=== PATIENT | female | born 1985 | race Caucasian/White ===

== ENCOUNTER 2016-04-22 16:36 | Emergency (ER) | payer BC ==
[~2016-04-22] VITALS: Ht 160 cm; Wt 81.1 kg
[~2016-04-22 16:36] MED LIST: HYDR-3419 PO
[2016-04-22 16:39] VITALS: Ht 160 cm; Wt 81.1 kg
[2016-04-22] MEDS ORDERED: SODIUM CHLORIDE 0.9% 1000ML 1,000 ML IV STA (16:50)
[2016-04-22 17:04] LABS: URINE APPEARANCE CLEAR (CLEAR); URINE BILIRUBIN NEG (NEG); URINE COLOR YELLOW; URINE EPITHELIAL CELL AUTO >30 /lpf (0-5); URINE NITRITE NEG (NEG); URINE PH 6.5 (4.5-7.5); URINE SPECIFIC GRAVITY 1.027 (1.000-1.030); UROBILINOGEN NEG (NEG); ZZUR CULT IF INDIC CLEAN CATCH NO
[2016-04-22 17:06] LABS: MANUAL MICROSCOPIC REQUIRED? NO; REVIEW REQ? NO
[2016-04-22] MEDS ORDERED: MoRPHine SULFATE 4 MG/ML 1 ML CARP\\VIAL IV STA ×2 (17:11→19:25)
--- NOTE | 2016-04-22 17:11 | DIAGNOSTIC IMAGING REPORT ---
CHEST ONE VIEW PORTABLE HISTORY: Evaluate Fever/Sepsis COMPARISON: Chest 12/26/2013. FINDINGS: The lungs are clear. Cardiac silhouette is normal in size. No pleural effusions. No pneumothorax. IMPRESSION: No acute process. Electronically signed by: Shiva Jonas M.D. 04/22/2016 5:10 PM Dictated Date/Time: 04/22/2016 5:09 PM
[2016-04-22] MEDS ORDERED: ONDANSETRON INJ 2 MG/ML 2 ML VIAL ONE (17:45)
[2016-04-22 17:49] VITALS: TEMP 37.2
[2016-04-22 17:53] LABS: BASO % 0.2 %; BASO ABS # 0.01 K/uL (0-0.2); COMPLETE YES; EOS % 0.4 %; HEMATOCRIT 39.1 % (37-47); IG% 0.2 %; LYMPH % 17.8 %; MEAN CELL VOLUME 84.8 fL (80-100); MEAN CORPUSCULAR HEMOGLOBIN 29.1 pg (25-34); MEAN CORPUSCULAR HGB CONC 34.3 g/dl (32-36); MEAN PLATELET VOLUME 10.7 fL (7.4-10.4); MONO % 9.4 %; PLATELET COUNT 173 K/uL (130-400); RED BLOOD COUNT 4.61 M/uL (4.2-5.4); WHITE BLOOD COUNT 5.61 K/uL (4.8-10.8)
[2016-04-22 18:20] LABS: ALT/SGPT 41 U/L (12-78); BLOOD UREA NITROGEN 11 mg/dl (7-18); BUN/CREATININE RATIO 15.8 (10-20); CALCIUM 8.7 mg/dl (8.5-10.1); CARBON DIOXIDE 23 mmol/L (21-32); CHLORIDE 106 mmol/L (98-107); CREATININE 0.67 mg/dl (0.60-1.20); GLUCOSE 96 mg/dl (70-99); POTASSIUM 3.5 mmol/L (3.5-5.1); SODIUM 141 mmol/L (136-145)
[2016-04-22 18:25] LABS: ALKALINE PHOSPHATASE 102 U/L (45-117); AST/SGOT 36 U/L (15-37)
[2016-04-22 18:41] LABS: PREG INTERNAL NEGATIVE QC NEG CLEAR BACKGROUND; PREG INTERNAL POSITIVE QC POS CONTROL LINE
--- NOTE | 2016-04-22 19:11 | EMERGENCY ROOM VISIT NOTE ---
History Report prepared by Chaparro: Levi Saucedo Under the Supervision of: Martinez SofiaO. First contact with patient: 16:49 Chief Complaint: FLU LIKE SX Stated Complaint: FEVER 103, COUGH, WHEEZING, BODY ACHES,HEADACHE History of Present Illness The patient is a 31 year old female who presents to the Emergency Room with complaints of persistent illness beginning yesterday. She notes she has had a fever of 103, headache which causes nausea, cough, body aches, wheezing, and pain in her right lower lobe. She has been taking Tylenol and Motrin. The patient is currently nursing. Source of History: patient Onset: yesterday Position: other (global) Quality: other (illness) Timing: other (persistent) Associated Symptoms: + cough, + fevers (103), + headache, + nausea Note: The patient notes having body aches, wheezing, and pain in her right lower lobe. Review of Systems See HPI for pertinent positives & negatives. A total of 10 systems reviewed and were otherwise negative. Past Medical & Surgical Medical Problems: (1) Anxiety State Nos (2) Migraine (3) Ovarian Cyst Nec/Nos (4) Polycystic Ovaries Family History Cancer Diabetes mellitus Gallbladder disease Heart disease Hypertension Lung disease Social History Smoking Status: Never Smoker Alcohol Use: occasionally Marital Status: Housing Status: lives with family Occupation Status: unemployed Current/Historical Medications Scheduled Escitalopram Oxalate (Lexapro), 20 MG PO DAILY Fenugreek (Trigonella Foenum-G (Fenugreek), 4 CAP PO TID Levothyroxine Sodium (Synthroid), 75 MCG PO HS Multivit/Min/Iron/Fol Ac/Pren ( Vitamin), 1 TAB PO HS Allergies Coded Allergies: Adhesives (Verified Allergy, Mild, RASH, 04/22/16) Azelastine (Verified Allergy, Mild, FACIAL SWELLING, 04/22/16) Codeine (Verified Allergy, Mild, HIVES, 04/22/16) Propoxyphene (Verified Allergy, Mild, 04/22/16) Tramadol (Verified Allergy, Mild, HIVES, 04/22/16) ABLE TO TAKE PO Beeswax (Verified Allergy, Unknown, SWELLING, 04/22/16) Hydromorphone (Verified Allergy, Unknown, hives , 02/19/16) HAD REACTION TO IV NOT SURE ONE TABLET FORM, Ketorolac (Verified Allergy, Unknown, HIVES, 04/22/16) Onion (Verified Allergy, Unknown, THROAT SWELLING, 04/22/16) Oxycodone (Verified Allergy, Unknown, THROAT SWELLING, 04/22/16) Penicillins (Verified Allergy, Unknown, THROAT SWELLING, 04/22/16) Tromethamine (Verified Allergy, Unknown, HIVES, 04/22/16) Physical Exam Vital Signs Date Time Temp Pulse Resp B/P Pulse Ox O2 Delivery O2 Flow Rate FiO2 04/22/16 18:47 97 16 102/61 99 Room Air 04/22/16 17:49 37.2 103 16 99/73 97 Room Air 04/22/16 17:05 112 04/22/16 16:39 37.5 130 18 116/88 93 Room Air Physical Exam CONSTITUTIONAL/VITAL SIGNS: Reviewed / noted above. GENERAL: Non-toxic in appearance. INTEGUMENTARY: Warm, dry, and [place]. HEAD: Normocephalic. EYES: without scleral icterus or trauma. ENT/OROPHARYNX: clear and moist. LYMPHADENOPATHY/NECK: Is supple without lymphadenopathy or meningismus. RESPIRATORY: Lungs clear and equal. CARDIOVASCULAR: Slightly tachycardic. GI/ABDOMEN: Soft and nontender. No organomegaly or pulsatile mass. No rebound or guarding. Normal bowel sounds. EXTREMITIES: Warm and well perfused. BACK: No CVA tenderness. NEUROLOGICAL: Intact without focal deficits. PSYCHIATRIC: normal affect. MUSCULOSKELETAL: Normally developed with good muscle tone. Medical Decision & Procedures ER Provider Diagnostic Interpretation: X ray results and stated below per my interpretation and radiology interpretation. CHEST ONE VIEW PORTABLE FINDINGS: The lungs are clear. Cardiac silhouette is normal in size. No pleural effusions. No pneumothorax. IMPRESSION: No acute process. Electronically signed by: Shiva Jonas M.D. 04/22/2016 5:10 PM Dictated Date/Time: 04/22/2016 5:09 PM Laboratory Results 04/22/16 17:30 Red Blood Count 4.61, Mean Corpuscular Volume 84.8, Mean Corpuscular Hemoglobin 29.1, Mean Corpuscular Hemoglobin Concent 34.3, Mean Platelet Volume 10.7, Neutrophils (%) (Auto) 72.0, Lymphocytes (%) (Auto) 17.8, Monocytes (%) (Auto) 9.4, Eosinophils (%) (Auto) 0.4, Basophils (%) (Auto) 0.2, Neutrophils # (Auto) 4.04, Lymphocytes # (Auto) 1.00, Monocytes # (Auto) 0.53, Eosinophils # (Auto) 0.02, Basophils # (Auto) 0.01 04/22/16 17:30 Test 04/22/16 16:45 04/22/16 17:00 04/22/16 17:30 Urine Color YELLOW Urine Appearance CLEAR (CLEAR) Urine pH 6.5 (4.5-7.5) Urine Specific [place] 1.027 (1.000-1.030) Urine Protein NEG (NEG) Urine Glucose (UA) NEG (NEG) Urine Ketones TRACE (NEG) Urine Occult Blood NEG (NEG) Urine Nitrite NEG (NEG) Urine Bilirubin NEG (NEG) Urine Urobilinogen NEG (NEG) Urine Leukocyte Esterase TRACE (NEG) Urine WBC (Auto) 5-10 /hpf (0-5) Urine RBC (Auto) 5-10 /hpf (0-4) Urine Hyaline Casts (Auto) 1-5 /lpf (0-5) Urine Epithelial Cells (Auto) >30 /lpf (0-5) Urine Bacteria (Auto) NEG (NEG) Urine Test NEG (NEG) Influenza Type A Antigen Neg for Influ A (NEG) Influenza Type B Antigen Neg for Influ B (NEG) White Blood Count 5.61 K/uL (4.8-10.8) Red Blood Count 4.61 M/uL (4.2-5.4) Hemoglobin 13.4 g/dL (12.0-16.0) Hematocrit 39.1 % (37-47) Mean Corpuscular Volume 84.8 fL (80-100) Mean Corpuscular Hemoglobin 29.1 pg (25-34) Mean Corpuscular Hemoglobin Concent 34.3 g/dl (32-36) Platelet Count 173 K/uL (130-400) Mean Platelet Volume 10.7 fL (7.4-10.4) Neutrophils (%) (Auto) 72.0 % Lymphocytes (%) (Auto) 17.8 % Monocytes (%) (Auto) 9.4 % Eosinophils (%) (Auto) 0.4 % Basophils (%) (Auto) 0.2 % Neutrophils # (Auto) 4.04 K/uL (1.4-6.5) Lymphocytes # (Auto) 1.00 K/uL (1.2-3.4) Monocytes # (Auto) 0.53 K/uL (0.11-0.59) Eosinophils # (Auto) 0.02 K/uL (0-0.5) Basophils # (Auto) 0.01 K/uL (0-0.2) RDW Standard Deviation 37.4 fL (36.4-46.3) RDW Coefficient of Variation 12.2 % (11.5-14.5) Immature Granulocyte % (Auto) 0.2 % Immature Granulocyte # (Auto) 0.01 K/uL (0.00-0.02) Anion Gap 12.0 mmol/L (3-11) Est Creatinine Clear Calc Drug Dose 124.9 ml/min Estimated GFR () 137.7 Estimated GFR (Non- 118.8 BUN/Creatinine Ratio 15.8 (10-20) Calcium Level 8.7 mg/dl (8.5-10.1) Total Bilirubin 0.7 mg/dl (0.2-1) Direct Bilirubin 0.2 mg/dl (0-0.2) Aspartate Amino Transf (AST/SGOT) 36 U/L (15-37) Alanine Aminotransferase (ALT/SGPT) 41 U/L (12-78) Alkaline Phosphatase 102 U/L (45-117) Troponin I < 0.015 ng/ml (0-0.045) Total Protein 7.6 gm/dl (6.4-8.2) Albumin 3.8 gm/dl (3.4-5.0) Laboratory results as stated above per my review. Medications Administered Medications (Trade) Dose Ordered Sig/Cori Route Start Time Stop Time Status Last Admin Dose Admin Sodium Chloride (Nss 1000ml) 1,000 ml @ 999 mls/hr Q1H1M STAT IV 04/22/16 16:50 04/22/16 17:50 DC 04/22/16 17:42 999 MLS/HR Morphine Sulfate (MoRPHine SULFATE INJ) 4 mg NOW STAT IV 04/22/16 17:11 04/22/16 17:12 DC 04/22/16 17:43 4 MG Ondansetron HCl (Zofran Inj) 4 mg STK-MED ONCE .ROUTE 04/22/16 17:45 04/22/16 17:46 DC 04/22/16 17:47 4 MG ECG Indication: other (illness) Rate (beats per minute): 104 Rhythm: sinus tachycardia Findings: no acute ischemic change, no ectopy ED Course 1649: Ordered NSS 1,000 ml @ 999 mls/hr IV. 1658: Previous medical records were reviewed. The patient was evaluated in room B2. A complete history and physical examination was performed. 1710: Ordered Morphine Sulfate 4 mg IV. 1929: On reevaluation, the patient is hemodynamically stable. I discussed the results and findings with the patient. She verbalized agreement of the treatment plan. The patient was discharged home. Medical Decision Differential includes viral illness, influenza, streptococcal pharyngitis, meningitis, pneumonia, sinusitis, UTI, pyelonephritis, otitis media. Is a 31-year-old female who presents to the ED with a chief complaint of flulike symptoms. The patient reports a cough, wheezing, body aches, headache and a fever for 103 this morning. She states report some pain in her right lower lung. Vital signs here reveal an initial tachycardia with heart rate of 1 :30 when she came into triage. It was 104 when I saw her in the room 2. Her physical exam was otherwise unremarkable. She does not appear to be in any distress. Chest x-ray did not show acute disease. CBC is normal. Urine appears contaminated. Flu swab was negative. EKG shows sinus tachycardia rate of 104. test is negative. Chemistry panel was unremarkable. The patient was told the results of the test. She was treated with IV fluids and IV morphine for her symptoms. She continued complaining of a headache. She was given additional IV morphine. I suggested to the patient and we should do a lumbar puncture. She declined this. She stated she would return if her symptoms persisted or worsened. She is felt to be stable for discharge. Tachycardia improved. Impression Primary Impression: Influenza-like symptoms Scribe Attestation The scribe's documentation has been prepared under my direction and personally reviewed by me in its entirety. I confirm that the note above accurately reflects all work, treatment, procedures, and medical decision making performed by me. Departure Information Dispostion Home / Self-Care Referrals No Doctor, Assigned (PCP) Patient Instructions My [facility] Additional Instructions Follow-up with your doctor for further care and evaluation in 1-2 days. Return to the emergency department for worsening or new symptoms or any concerns. You have been examined and treated today on an emergency basis only. This is not a substitute for, or an effort to provide, complete comprehensive medical care. It is impossible to recognize and treat all injuries or illnesses in a single emergency department visit. It is therefore important that you follow up closely with your doctor. Call as soon as possible for an appointment.
[2016-04-22 19:39] VITALS: BP 105/67; PULSE 104; O2SAT 99
[2016-04-23] MEDS ORDERED: HYDR-5688 PO (17:45)
[2016-04-23] MEDS ORDERED: VNTHFA/IN INH (17:45)
[2016-04-23] MEDS ORDERED: PROM25TA9 PO (17:45)
[2016-04-30] MEDS ORDERED: BENZ100C7 PO (13:16)
[2016-04-30] MEDS ORDERED: LCTX PO (13:16)
[2016-04-30] MEDS ORDERED: VNTHFA/IN INH (13:16)
[2016-04-30] MEDS ORDERED: LVQ500 PO (13:16)
== END 2016-04-22 19:38 | disposition home or self-care (01) ==
LOC: C.EDB 16:38
DX: R50.9 Fever, unspecified (principal); R51 Headache; R05 Cough; R11.0 Nausea; R52 Pain, unspecified; R00.0 Tachycardia, unspecified; F41.9 Anxiety disorder, unspecified; E28.2 Polycystic ovarian syndrome; Z83.3 Family history of diabetes mellitus; Z82.49 Family history of ischemic heart disease and other diseases of the circulatory system

== ENCOUNTER 2016-04-23 14:16 | Emergency (ER) | payer BC ==
[~2016-04-23] VITALS: Ht 160 cm; Wt 81.4 kg
[2016-04-23 14:20] VITALS: Ht 160 cm; Wt 81.4 kg
[2016-04-23] MEDS ORDERED: ONDANSETRON INJ 2 MG/ML 2 ML VIAL IV STA ×2 (15:23→17:39)
[2016-04-23] MEDS ORDERED: SODIUM CHLORIDE 0.9% 1000ML 1,000 ML IV STA ×2 (15:23)
[2016-04-23] MEDS ORDERED: DiphenhydrAMINE HCL 50 MG/ML VIAL IV STA (15:23)
[2016-04-23] MEDS ORDERED: PROMETHAZINE HCL INJ 12.5 MG in SODIUM CHLORIDE 0.9% 50ML 50 ML IV STA (15:23)
[2016-04-23] MEDS ORDERED: MoRPHine SULFATE 4 MG/ML 1 ML CARP\\VIAL IV PRN (15:30)
[2016-04-23 16:19] LABS: BASO % 0.2 %; BASO ABS # 0.01 K/uL (0-0.2); COMPLETE YES; EOS % 0.2 %; HEMATOCRIT 39.7 % (37-47); IG% 0.2 %; LYMPH % 17.5 %; MEAN CELL VOLUME 86.7 fL (80-100); MEAN CORPUSCULAR HGB CONC 33.5 g/dl (32-36); MEAN PLATELET VOLUME 11.1 fL (7.4-10.4); MONO % 10.7 %; NEUT % 71.2 %; PLATELET COUNT 161 K/uL (130-400); RED BLOOD COUNT 4.58 M/uL (4.2-5.4); WHITE BLOOD COUNT 5.72 K/uL (4.8-10.8)
[2016-04-23] MEDS ORDERED: XYLOCAINE 1%/SOD BICARB 20 ML VIAL INFIL ONE (16:23)
[2016-04-23] MEDS ORDERED: FENTANYL CITRATE INJ 50 MCG/1 ML 2 ML VIAL IV STA (16:47)
[2016-04-23] MEDS ORDERED: PROMETHAZINE HCL INJ 6.25 MG in SODIUM CHLORIDE 0.9% 50ML 50 ML IV STA (16:47)
[2016-04-23 17:13] LABS: CSF TOTAL PROTEIN 28.4 mg/dl (15.0-45.0)
[2016-04-23 17:17] LABS: CSF APPEARANCE CLEAR; CSF COLOR COLORLESS; CSF XANTHOCHROMIC NO XANTHOCHROMIA
--- NOTE | 2016-04-23 17:34 | EMERGENCY ROOM VISIT NOTE ---
History Report prepared by Chaparro: Jeff Payne Under the Supervision of: Dr. Micheal Marcial M.D. First contact with patient: 15:17 Chief Complaint: FLU LIKE SX Stated Complaint: HEADACHE,FEVER,BODY ACHES History of Present Illness The patient is a 31 year old female who presents to the Emergency Room with complaints of a persistent fever for the past three days. The patient has been taking Tylenol, with her last dose being four hours [employer]. She hasn't been able to bring her temperature below 100.9. The patient complains of a severe headache and pain on the left side of her neck. She also has generalized body aches and a cough. She denies any sore throats, rhinorrhea, vomiting, diarrhea, or urinary symptoms. The patient was in the ED yesterday for these symptoms. The patient had a negative flu swab and negative chest x-ray. She was not started on antibiotics. The patient declined a spinal tap yesterday. She called her PCP today, who told her to come back to the ED for a lumbar puncture. The patient's significant other and children all recently had cold symptoms that were much more mild than her symptoms. Source of History: patient Onset: three days Position: other (global) Symptom Intensity: 100.9 Quality: other (febrile) Timing: other (persistent) Modifying Factors (Relieving): tylenol Associated Symptoms: + cough, + headache, + neck pain, No diarrhea, No sorethroat, No urinary symptoms, No vomiting Review of Systems See HPI for pertinent positives & negatives. A total of 10 systems reviewed and were otherwise negative. Past Medical & Surgical Medical Problems: (1) Anxiety State Nos (2) Migraine (3) Ovarian Cyst Nec/Nos (4) Polycystic Ovaries Family History Cancer Diabetes mellitus Gallbladder disease Heart disease Hypertension Lung disease Social History Smoking Status: Never Smoker Alcohol Use: occasionally Marital Status: Housing Status: lives with family Occupation Status: unemployed Current/Historical Medications Scheduled Acetaminophen (Tylenol), 1,000 MG PO PRN UD Albuterol Hfa (Ventolin Hfa), 2 PUFFS INH Q6H Escitalopram Oxalate (Lexapro), 20 MG PO DAILY Fenugreek (Trigonella Foenum-G (Fenugreek), 4 CAP PO TID Levothyroxine Sodium (Synthroid), 75 MCG PO HS Multivit/Min/Iron/Fol Ac/Pren ( Vitamin), 1 TAB PO HS Scheduled PRN Hydrocodone/Acetaminophen 5MG/325MG ([place] 5MG/325MG), 1-2 TABLET PO Q4 PRN for Pain Promethazine Hcl (Phenergan), 25-50 MG PO Q6H PRN for Nausea Allergies Coded Allergies: Adhesives (Verified Allergy, Mild, RASH, 04/23/16) Azelastine (Verified Allergy, Mild, FACIAL SWELLING, 04/23/16) Codeine (Verified Allergy, Mild, HIVES, 04/23/16) Propoxyphene (Verified Allergy, Mild, HIVES, VOMITING, 04/23/16) HIVE, VOMITING Tramadol (Verified Allergy, Mild, HIVES, 04/22/16) ABLE TO TAKE PO Beeswax (Verified Allergy, Unknown, SWELLING, 04/22/16) Hydromorphone (Verified Allergy, Unknown, hives , 02/19/16) HAD REACTION TO IV NOT SURE ONE TABLET FORM, Ketorolac (Verified Allergy, Unknown, HIVES, 04/22/16) Onion (Verified Allergy, Unknown, THROAT SWELLING, 04/22/16) Oxycodone (Verified Allergy, Unknown, THROAT SWELLING, 04/22/16) Penicillins (Verified Allergy, Unknown, THROAT SWELLING, 04/23/16) Tromethamine (Verified Allergy, Unknown, HIVES, 04/23/16) Physical Exam Vital Signs Date Time Temp Pulse Resp B/P Pulse Ox O2 Delivery O2 Flow Rate FiO2 04/23/16 17:45 37.9 105 20 104/73 98 Room Air 04/23/16 16:06 120 18 112/76 99 Room Air 04/23/16 14:20 37.2 124 18 107/72 93 Room Air Physical Exam GENERAL: Patient is in no acute distress. HEENT: No acute trauma, normocephalic atraumatic, mucous membranes moist, mild nasal congestion, no scleral icterus, no throat erythema or exudate. NECK: No stridor, no adenopathy, no meningismus, trachea is midline. LUNGS: Decreased breath sounds bilaterally, no wheezing or rhonchi, breath sounds are equal. HEART: Tachycardic with regular rhythm, no murmurs. ABDOMEN: Soft, nontender, bowel sounds positive, no hernias, no peritonitis. EXTREMITIES: No cyanosis or edema, full range of motion of all the joints without pain or difficulty, no signs for acute trauma. NEUROLOGIC: Oriented x 3, no acute motor or sensory deficits, no focal weakness. SKIN: No rash, no jaundice, no diaphoresis. Medical Decision & Procedures Laboratory Results 04/23/16 15:53 Red Blood Count 4.58, Mean Corpuscular Volume 86.7, Mean Corpuscular Hemoglobin 29.0, Mean Corpuscular Hemoglobin Concent 33.5, Mean Platelet Volume 11.1, Neutrophils (%) (Auto) 71.2, Lymphocytes (%) (Auto) 17.5, Monocytes (%) (Auto) 10.7, Eosinophils (%) (Auto) 0.2, Basophils (%) (Auto) 0.2, Neutrophils # (Auto ) 4.08, Lymphocytes # (Auto) 1.00, Monocytes # (Auto) 0.61, Eosinophils # (Auto ) 0.01, Basophils # (Auto) 0.01 Test 04/23/16 00:00 04/23/16 15:53 04/23/16 15:56 CSF Color COLORLESS CSF Appearance CLEAR CSF WBC 4 /uL (0-5) CSF RBC 0 /uL (0) CSF Xanthrochromic NO XANTHOCHROMIA CSF Cell Count Tube # 4 CSF Chemistry Tube # 2 CSF Glucose 60 mg/dl (40-70) CSF Total Protein 28.4 mg/dl (15.0-45.0) White Blood Count 5.72 K/uL (4.8-10.8) Red Blood Count 4.58 M/uL (4.2-5.4) Hemoglobin 13.3 g/dL (12.0-16.0) Hematocrit 39.7 % (37-47) Mean Corpuscular Volume 86.7 fL (80-100) Mean Corpuscular Hemoglobin 29.0 pg (25-34) Mean Corpuscular Hemoglobin Concent 33.5 g/dl (32-36) Platelet Count 161 K/uL (130-400) Mean Platelet Volume 11.1 fL (7.4-10.4) Neutrophils (%) (Auto) 71.2 % Lymphocytes (%) (Auto) 17.5 % Monocytes (%) (Auto) 10.7 % Eosinophils (%) (Auto) 0.2 % Basophils (%) (Auto) 0.2 % Neutrophils # (Auto) 4.08 K/uL (1.4-6.5) Lymphocytes # (Auto) 1.00 K/uL (1.2-3.4) Monocytes # (Auto) 0.61 K/uL (0.11-0.59) Eosinophils # (Auto) 0.01 K/uL (0-0.5) Basophils # (Auto) 0.01 K/uL (0-0.2) RDW Standard Deviation 39.5 fL (36.4-46.3) RDW Coefficient of Variation 12.3 % (11.5-14.5) Immature Granulocyte % (Auto) 0.2 % Immature Granulocyte # (Auto) 0.01 K/uL (0.00-0.02) Influenza Type A (RT-PCR) Neg for Influ A (NEG) Influenza Type B (RT-PCR) Neg for Influ B (NEG) Laboratory results reviewed by me. Medications Administered Medications (Trade) Dose Ordered Sig/Cori Route Start Time Stop Time Status Last Admin Dose Admin Ondansetron HCl 4 mg 4 mg NOW STAT IV 04/23/16 15:23 04/23/16 15:27 DC 04/23/16 16:00 4 MG Promethazine HCl/ Sodium Chloride (Phenergan Inj/ Nss 50ml) 50.5 ml @ 204 mls/hr NOW STAT IV 04/23/16 15:23 04/23/16 15:37 DC 04/23/16 15:52 204 MLS/HR Diphenhydramine HCl (Benadryl Inj) 25 mg NOW STAT IV 04/23/16 15:23 04/23/16 15:27 DC 04/23/16 16:00 25 MG Morphine Sulfate 4 mg 4 mg Q15M PRN IV 04/23/16 15:30 05/07/16 15:29 04/23/16 16:00 4 MG Sodium Chloride 1,000 ml @ 999 mls/hr Q1H1M STAT IV 04/23/16 15:23 04/23/16 16:23 DC 04/23/16 15:52 999 MLS/HR Sodium Chloride (Nss 1000ml) 1,000 ml @ 200 mls/hr Q5H STAT IV 04/23/16 15:23 04/23/16 20:22 04/23/16 16:03 200 MLS/HR Fentanyl Citrate 100 mcg 100 mcg NOW STAT IV 04/23/16 16:47 04/23/16 16:49 DC 04/23/16 17:41 100 MCG Promethazine HCl/ Sodium Chloride (Phenergan Inj/ Nss 50ml) 50.25 ml @ 204 mls/hr NOW STAT IV 04/23/16 16:47 04/23/16 17:01 DC 04/23/16 17:43 204 MLS/HR Procedure Lumbar Puncture Indication: severe headache. Verbal consent was obtained after the risks and benefits were explained, including but not limited to headache, bleeding/clotting, scarring, infection, pain, and bone/joint/nerve damage. At this time, the risks of the procedure are less than the risks of NOT performing the procedure. A time out was taken and the correct patient and site identified. The patient was placed in the seated position and the back was prepped with betadine and draped in the standard fashion. The L3 intervertebral space was identified, anesthetized locally with 1 % lidocaine without epinephrine, and the spinal needle was inserted through the skin with the bevel parallel to the dural fibers. The needle was carefully advanced into the lumbar cistern and 4 tubes of clear CSF was obtained. The stylet was replaced and the needle was removed. A bandaid was placed and the patient was placed in the supine position. The patient tolerated the procedure well and there were no complications. ED Course 1518: The patient was evaluated in room B6. A complete history and physical exam was performed. 1523: NSS 1000 ml @ 200 mls/hr, NSS 1000 ml @ 999 mls/hr, Benadryl 25 mg IV, Promethazine HCl 12.5 mg / NSS 50.5 ml @ 204 mls/hr, Zofran 4 mg IV. 1530: Morphine Sulfate 4 mg IV. 1622: Lumbar puncture performed. Please see procedural note above. 1647: Fentanyl 100 mcg IV, Promethazine HCl 6.25 mg / NSS 50.25 ml @ 204 mls/hr. 1735: Reassessed the patient. Discussed her options to stay in the hospital or go home. She has not received her second round of medications. 1739: Zofran 4 mg IV. 1745: Albuterol 3 puffs INH. Medical Decision Differential diagnosis includes influenza, flu-like illness, bronchitis, pneumonia, meningitis. There is no leukocytosis or concerning anemia. PCR influenza testing was negative. I did review the workup from yesterday, there was no pneumonia, no worrisome findings on laboratory testing. The patient did not have any focal neurologic deficits. She was slightly tachycardic on exam. She complained of a severe headache and stated that she was now ready to undergo a lumbar puncture to rule out meningitis. The lumbar puncture was performed, there were no complications. The fluid does not show evidence for meningitis. The patient received IV saline, IV Zofran, IV morphine and IV Phenergan. She was given albuterol via MDI. She received a second dose of IV Zofran and IV Phenergan and was given a dose of IV fentanyl. She feels improved. I talked to her about disposition. She does want to be discharged home. She is going to be resting, hydration was encouraged. [place] for pain, albuterol for bronchospasm, Phenergan for nausea. If worsening, she will return. Her illness does appear viral. I did review the patient on the prescribers databank, no issues identified. Impression Primary Impression: Influenza-like symptoms Additional Impression: BABIN (headache) Scribe Attestation The scribe's documentation has been prepared under my direction and personally reviewed by me in its entirety. I confirm that the note above accurately reflects all work, treatment, procedures, and medical decision making performed by me. Departure Information Dispostion Home / Self-Care Prescriptions Albuterol Hfa (VENTOLIN HFA) 200 Puffs/23675 Mcg Aers 2 PUFFS INH Q6H, #1 INHALER Prov: Micheal Marcial M.D. 04/23/16 Promethazine Hcl (Phenergan) 25 Mg Tab 25-50 MG PO Q6H Y for Nausea, #15 TAB Prov: Micheal Marcial M.D. 04/23/16 Hydrocodone/Acetaminophen 5MG/325MG ([place] 5MG/325MG) Tab 1-2 TABLET PO Q4 Y for Pain, #12 TAB Prov: Micheal Marcial M.D. 04/23/16 Referrals Kendell Aguirre M.D. (PCP) Forms HOME CARE DOCUMENTATION FORM, IMPORTANT VISIT INFORMATION, Work Instructions Patient Instructions My [facility] Additional Instructions rest fluids motrin/tylenol for fever and pain norco 1-2 tab every 4 hours for pain phenergan 1-2 tab every 6 hours for nausea albuterol 2 puffs every 4 hours for cough return if worsening lab testing and spinal tap results were all ok Problem Qualifiers
[2016-04-23 17:42] LABS: INFLUENZA A PCR Neg for Influ A (NEG); INFLUENZA B PCR Neg for Influ B (NEG)
[2016-04-23 17:45] VITALS: TEMP 37.9
[2016-04-23 17:45] LABS: CSF CHEMISTRY TUBE # 2
[2016-04-23] MEDS ORDERED: ALBUTEROL HFA 8 GM INHALER INH ONE (17:45)
[2016-04-23] MEDS ORDERED: PROM25TA9 PO (17:45)
[2016-04-23] MEDS ORDERED: HYDR-5688 PO (17:45)
[2016-04-23] MEDS ORDERED: VNTHFA/IN INH (17:45)
[2016-04-23 18:23] VITALS: BP 121/76; PULSE 113; O2SAT 96
[2016-04-30] MEDS ORDERED: VNTHFA/IN INH (13:16)
[2016-04-30] MEDS ORDERED: BENZ100C7 PO (13:16)
[2016-04-30] MEDS ORDERED: LVQ500 PO (13:16)
[2016-04-30] MEDS ORDERED: LCTX PO (13:16)
== END 2016-04-23 18:32 | disposition home or self-care (01) ==
LOC: C.EDB 14:17
DX: R51 Headache (principal); R50.9 Fever, unspecified; R05 Cough; E28.2 Polycystic ovarian syndrome; F41.9 Anxiety disorder, unspecified; Z83.3 Family history of diabetes mellitus; Z82.49 Family history of ischemic heart disease and other diseases of the circulatory system; Z79.899 Other long term (current) drug therapy

== ENCOUNTER 2016-04-26 10:36 | Inpatient (IN) | payer BC ==
[~2016-04-26] VITALS: Ht 160 cm; Wt 85.0 kg
[~2016-04-26 10:36] MED LIST changes: -HYDR-3419 PO; +HYDR-5688 PO; +PROM25TA9 PO; +VNTHFA/IN INH
[2016-04-26] MEDS ORDERED: LEVO75TA PO (10:39)
[2016-04-26] MEDS ORDERED: ONDANSETRON INJ 2 MG/ML 2 ML VIAL IV STA ×2 (11:54→13:21)
[2016-04-26] MEDS ORDERED: SODIUM CHLORIDE 0.9% 1000ML 1,000 ML IV STA ×3 (11:54→13:23)
[2016-04-26] MEDS: FENTANYL CITRATE INJ 50 MCG/1 ML 2 ML VIAL IV PRN ×3 (12:12→14:20)
[2016-04-26 12:18] LABS: BASO % 0.2 %; BASO ABS # 0.01 K/uL (0-0.2); COMPLETE YES; EOS % 1.1 %; HEMATOCRIT 31.9 % (37-47); IG% 0.2 %; LYMPH % 21.3 %; LYMPH ABS # 0.97 K/uL (1.2-3.4); MEAN CELL VOLUME 84.8 fL (80-100); MEAN CORPUSCULAR HEMOGLOBIN 28.7 pg (25-34); MEAN CORPUSCULAR HGB CONC 33.9 g/dl (32-36); MEAN PLATELET VOLUME 11.2 fL (7.4-10.4); MONO % 6.1 %; NEUT % 71.1 %; PLATELET COUNT 158 K/uL (130-400); RED BLOOD COUNT 3.76 M/uL (4.2-5.4); WHITE BLOOD COUNT 4.56 K/uL (4.8-10.8)
[2016-04-26] MEDS ORDERED: ALBUT/IPRATROP 3MG/0.5MG NEB 3 ML VIAL INH STA (12:18)
[2016-04-26 12:35] LABS: ALT/SGPT 43 U/L (12-78); BLOOD UREA NITROGEN 10 mg/dl (7-18); BUN/CREATININE RATIO 14.2 (10-20); CALCIUM 8.5 mg/dl (8.5-10.1); CARBON DIOXIDE 28 mmol/L (21-32); CHLORIDE 108 mmol/L (98-107); CREATININE 0.67 mg/dl (0.60-1.20); GLUCOSE 116 mg/dl (70-99); POTASSIUM 3.4 mmol/L (3.5-5.1); SODIUM 144 mmol/L (136-145)
[2016-04-26 12:38] LABS: ALKALINE PHOSPHATASE 113 U/L (45-117); AST/SGOT 49 U/L (15-37)
[2016-04-26 12:42] LABS: PREG INTERNAL NEGATIVE QC NEG CLEAR BACKGROUND; PREG INTERNAL POSITIVE QC POS CONTROL LINE
--- NOTE | 2016-04-26 12:45 | EMERGENCY ROOM VISIT NOTE ---
History Report prepared by Chaparro: Kate Nolan Under the Supervision of: Dr. Edmund Tapia D.O. First contact with patient: 11:39 Chief Complaint: FEVER Stated Complaint: FEVER, 100-104 X 6 DAYS SEVERE BABIN, COUGH HERE F&S History of Present Illness The patient is a 31 year old female who presents to the Emergency Room with complaints of a persistent fever for the past six days. She currently rates her discomfort as a 9/10 in severity. The patient states that she has been experiencing flu like symptoms. She states that all of her symptoms have subsided, except for the fever that has been running between 100-104 degrees Fahrenheit, headache, diaphoresis, a cough, and sore throat secondary to the cough. The patient states that she was evaluated in the emergency department by Dr. Garner and he offered a lumbar puncture after all her flu swab and blood work came back negative. She states that she declined the lumbar puncture and went home. The patient states that she talked to her PCP on Tuesday and she states that she was instructed to come back to the emergency department for a lumbar puncture. She states that Dr. Marcial did a lumbar puncture that came back normal and her flu panel was negative. The patient states that she was offered admission for pain management and fluids, but states that she declined due to her two young children at home. She states that she was instructed to return to the emergency department if her symptoms did not improve. The patient states that her symptoms have persisted. She states that this morning her fever was 103.1 degrees Fahrenheit and took Tylenol for her symptoms. The patient notes nausea today secondary to her headache, but denies any vomiting. She states that her headache is the same that it has been since the start of her illness. The patient states that she has not been urinating as much, but notes that she has not been drinking as much. She states that Fentanyl alleviated her headache, but nothing else has. The patient denies any rash. She states that her last menstrual cycle was in April of last year. The patient notes a history of cardiomyopathy, PCOS, endometriosis, hypothyroidism, and depression. She denies any tobacco or alcohol use. Source of History: patient Onset: six days Position: other (global) Symptom Intensity: 9/10 Quality: other (fever) Timing: other (persistent) Associated Symptoms: + cough, + diaphoresis, + headache, + nausea, + sorethroat, No vomiting Review of Systems See HPI for pertinent positives & negatives. A total of 10 systems reviewed and were otherwise negative. 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 (4) Hypothyroidism Surgical Problems: (1) H/O exploratory laparotomy (2) History of knee surgery Family History Cancer Diabetes mellitus Gallbladder disease Heart disease Hypertension Lung disease Social History Smoking Status: Never Smoker Alcohol Use: occasionally Marital Status: Housing Status: lives with family Occupation Status: unemployed Current/Historical Medications Scheduled Albuterol Hfa (Ventolin Hfa), 2 PUFFS INH Q6H Escitalopram Oxalate (Lexapro), 20 MG PO DAILY Fenugreek (Trigonella Foenum-G (Fenugreek), 4 CAP PO TID Levothyroxine Sodium (Synthroid), 75 MCG PO HS Multivit/Min/Iron/Fol Ac/Pren ( Vitamin), 1 TAB PO HS Scheduled PRN Acetaminophen (Tylenol), 1,000 MG PO for Fever Hydrocodone/Acetaminophen 5MG/325MG (Parkman 5MG/325MG), 1-2 TABLET PO Q4 PRN for Pain Ibuprofen Tab (Motrin), 600 MG PO Q6H PRN for Pain Promethazine Hcl (Phenergan), 25-50 MG PO Q6H PRN for Nausea Valacyclovir Hcl (Valtrex), 1,000 MG PO BID PRN for cold sores Allergies Coded Allergies: Adhesives (Verified Allergy, Mild, RASH, 04/26/16) Azelastine (Verified Allergy, Mild, FACIAL SWELLING, 04/26/16) Codeine (Verified Allergy, Mild, HIVES, 04/26/16) Propoxyphene (Verified Allergy, Mild, HIVES, VOMITING, 04/26/16) HIVE, VOMITING Tramadol (Verified Allergy, Mild, HIVES, 04/26/16) ABLE TO TAKE PO Beeswax (Verified Allergy, Unknown, SWELLING, 04/26/16) Hydromorphone (Verified Allergy, Unknown, hives , 04/26/16) HAD REACTION TO IV NOT SURE ONE TABLET FORM, Ketorolac (Verified Allergy, Unknown, HIVES, 04/26/16) Onion (Verified Allergy, Unknown, THROAT SWELLING, 04/26/16) Oxycodone (Verified Allergy, Unknown, THROAT SWELLING, 04/26/16) Penicillins (Verified Allergy, Unknown, THROAT SWELLING, 04/26/16) Tromethamine (Verified Allergy, Unknown, HIVES, 04/26/16) Physical Exam Vital Signs Date Time Temp Pulse Resp B/P Pulse Ox O2 Delivery O2 Flow Rate FiO2 04/26/16 13:23 103 91 Nasal Cannula 2.0 04/26/16 12:49 102 04/26/16 12:14 97 18 126/58 88 Room Air 04/26/16 10:39 37.4 114 18 113/65 92 Room Air Physical Exam GENERAL: Patient is awake, alert, somewhat anxious appearing and uncomfortable. EYES: The conjunctivae are clear. The pupils are round and reactive. EARS, NOSE, MOUTH AND THROAT: The nose is without any evidence of any deformity. Mucous membranes are moist tongue is midline NECK: The neck is nontender and supple. RESPIRATORY: Scattered rhonchi noted throughout. No tachypnea or respiratory distress noted. CARDIOVASCULAR: Tachycardic rate, but regular rhythm. No definite murmur noted to auscultation. GASTROINTESTINAL: The abdomen is soft. Bowel sounds are present in all quadrants. Abdomen is nontender MUSCULOSKELETAL/EXTREMITIES: There is no evidence of gross deformity full range of motion is noted in the hips and shoulders SKIN: There is no obvious evidence of any rash. There are no petechiae, pallor or cyanosis noted. NEUROLOGIC: Patient is awake alert and oriented x3 strength is symmetric patellar reflexes are 2+ bilaterally Medical Decision & Procedures ER Provider Diagnostic Interpretation: X-ray results as stated below per interpretation by me and the radiologist. TWO VIEW CHEST CLINICAL HISTORY: Generalized abdominal pain. Fever. FINDINGS: PA and lateral chest radiographs are compared to study dated 04/22/2016. Correlation is made with chest CT dated 12/26/2013. The cardiomediastinal silhouette is unremarkable. There is patchy airspace consolidation identified throughout the left lung, new from 04/22/2016. The right lung appears clear. No pleural effusion or pneumothorax is seen. The bony thorax appears intact. IMPRESSION: There is patchy airspace consolidation identified throughout the left lung, new from 04/22/2016 and typical in appearance for pneumonia. Radiographic follow-up to resolution is recommended. Electronically signed by: Micheal Treviño M.D. 04/26/2016 1:06 PM Dictated Date/Time: 04/26/2016 1:05 PM Laboratory Results 04/26/16 12:05 Red Blood Count 3.76, Mean Corpuscular Volume 84.8, Mean Corpuscular Hemoglobin 28.7, Mean Corpuscular Hemoglobin Concent 33.9, Mean Platelet Volume 11.2, Neutrophils (%) (Auto) 71.1, Lymphocytes (%) (Auto) 21.3, Monocytes (%) (Auto) 6.1, Eosinophils (%) (Auto) 1.1, Basophils (%) (Auto) 0.2, Neutrophils # (Auto) 3.24, Lymphocytes # (Auto) 0.97, Monocytes # (Auto) 0.28, Eosinophils # (Auto) 0.05, Basophils # (Auto) 0.01 04/26/16 12:05 Test 04/26/16 12:05 04/26/16 12:11 04/26/16 13:52 White Blood Count 4.56 K/uL (4.8-10.8) Red Blood Count 3.76 M/uL (4.2-5.4) Hemoglobin 10.8 g/dL (12.0-16.0) Hematocrit 31.9 % (37-47) Mean Corpuscular Volume 84.8 fL (80-100) Mean Corpuscular Hemoglobin 28.7 pg (25-34) Mean Corpuscular Hemoglobin Concent 33.9 g/dl (32-36) Platelet Count 158 K/uL (130-400) Mean Platelet Volume 11.2 fL (7.4-10.4) Neutrophils (%) (Auto) 71.1 % Lymphocytes (%) (Auto) 21.3 % Monocytes (%) (Auto) 6.1 % Eosinophils (%) (Auto) 1.1 % Basophils (%) (Auto) 0.2 % Neutrophils # (Auto) 3.24 K/uL (1.4-6.5) Lymphocytes # (Auto) 0.97 K/uL (1.2-3.4) Monocytes # (Auto) 0.28 K/uL (0.11-0.59) Eosinophils # (Auto) 0.05 K/uL (0-0.5) Basophils # (Auto) 0.01 K/uL (0-0.2) RDW Standard Deviation 38.8 fL (36.4-46.3) RDW Coefficient of Variation 12.5 % (11.5-14.5) Immature Granulocyte % (Auto) 0.2 % Immature Granulocyte # (Auto) 0.01 K/uL (0.00-0.02) D-Dimer 2120 ug/L FEU (0-500) Anion Gap 8.0 mmol/L (3-11) Est Creatinine Clear Calc Drug Dose 125.5 ml/min Estimated GFR () 137.7 Estimated GFR (Non- 118.8 BUN/Creatinine Ratio 14.2 (10-20) Calcium Level 8.5 mg/dl (8.5-10.1) Magnesium Level 1.9 mg/dl (1.8-2.4) Total Bilirubin 0.4 mg/dl (0.2-1) Direct Bilirubin < 0.1 mg/dl (0-0.2) Aspartate Amino Transf (AST/SGOT) 49 U/L (15-37) Alanine Aminotransferase (ALT/SGPT) 43 U/L (12-78) Alkaline Phosphatase 113 U/L (45-117) Total Protein 6.4 gm/dl (6.4-8.2) Albumin 2.6 gm/dl (3.4-5.0) Lipase 55 U/L (73-393) Human Chorionic Gonadotropin, Qual NEG (NEG) Monoscreen NEG (NEG) Urine Color DK YELLOW Urine Appearance CLOUDY (CLEAR) Urine pH 5.5 (4.5-7.5) Urine Specific Ent[place] 1.031 (1.000-1.030) Urine Protein 1+ (NEG) Urine Glucose (UA) NEG (NEG) Urine Ketones TRACE (NEG) Urine Occult Blood NEG (NEG) Urine Nitrite NEG (NEG) Urine Bilirubin NEG (NEG) Urine Urobilinogen NEG (NEG) Urine Leukocyte Esterase TRACE (NEG) Urine WBC (Auto) 10-30 /hpf (0-5) Urine RBC (Auto) 5-10 /hpf (0-4) Urine Hyaline Casts (Auto) 1-5 /lpf (0-5) Urine Epithelial Cells (Auto) >30 /lpf (0-5) Urine Bacteria (Auto) 2+ (NEG) Urine Pathogenic Casts 0-3 WBC CASTS /lpf (0) Bedside Lactic Acid Venous 0.73 mmol/L (0.90-1.70) Laboratory results per my review. Medications Administered Medications (Trade) Dose Ordered Sig/Cori Route Start Time Stop Time Status Last Admin Dose Admin Sodium Chloride 1,000 ml @ 999 mls/hr Q1H1M STAT IV 04/26/16 11:54 04/26/16 12:54 DC 04/26/16 12:12 999 MLS/HR Sodium Chloride (Nss 1000ml) 1,000 ml @ 250 mls/hr Q4H STAT IV 04/26/16 11:54 04/26/16 15:53 DC 04/26/16 12:46 250 MLS/HR Ondansetron HCl (Zofran Inj) 4 mg NOW STAT IV 04/26/16 11:54 04/26/16 11:56 DC 04/26/16 12:11 4 MG Fentanyl Citrate (Fentanyl Inj) 50 mcg Q15M PRN IV 04/26/16 12:00 04/26/16 16:29 DC 04/26/16 14:20 50 MCG Albuterol/ Ipratropium (Duoneb) 3 ml NOW STAT INH 04/26/16 12:18 04/26/16 12:19 DC 04/26/16 12:36 3 ML Ondansetron HCl 4 mg 4 mg NOW STAT IV 04/26/16 13:21 04/26/16 13:22 DC 04/26/16 13:28 4 MG Sodium Chloride (Nss 1000ml) 1,000 ml @ 999 mls/hr Q1H1M STAT IV 04/26/16 13:23 04/26/16 14:23 DC 04/26/16 13:28 999 MLS/HR Levofloxacin 750 mg 750 mg NOW STAT IV 04/26/16 13:23 04/26/16 13:24 DC 04/26/16 14:00 750 MG Sodium Chloride (Nss 1000ml) 1,000 ml @ 100 mls/hr Q10H IV 04/26/16 14:39 05/26/16 14:38 04/26/16 14:39 100 MLS/HR ED Course 1151: The patient was evaluated in room C9. A complete history and physical examination were performed. 1154: Ordered Zofran Inj 4 mg IV, Sodium Chloride 1000 ml @ 250 mls/hr IV, Sodium Chloride 1000 ml @ 999 mls/hr IV. 1200: Ordered Fentanyl Inj 50 mcg IV. 1218: Ordered DuoNeb 3 ml INH. 1321: Ordered Zofran Inj 4 mg IV. 1323: Ordered Levofloxacin 750 mg IV, Sodium Chloride 1000 ml @ 999 mls/hr IV. 1344: I reevaluated the patient and she is resting comfortably. I discussed the exam findings with her and I discussed the treatment plan. She verbalized complete understanding and agreement. She is going to be evaluated for further treatment. 1409: I discussed the patients case with Kandice Frazier PA-C. She is going to evaluate the patient for further treatment. Medical Decision Differential diagnosis: Etiologies such as viral syndrome, otitis, pharyngitis, pneumonia, influenza, meningitis, urinary tract infection, sepsis, bacteremia, as well as others were entertained.. Nursing notes reviewed. The patient is a 31-year-old female who presented to the emergency department for fever. The patient has been seen in our facility multiple times for similar complaints. She initially presented with a viral syndrome. Her workup was nonconclusive and she was sent home at that time. She return to our facility with headache and fever. At that time she had a lumbar puncture which did not reveal any acute infectious process. She was offered admission at that time but did not wish to stay in the hospital because she is a mother and has to take care of young children. She returns today with worsening symptoms. The patient was found have signs of respiratory problems and was treated with DuoNeb IV fluid and IV antibiotics. She was reevaluated multiple times. I discussed the laboratory radiographic studies with her. Because of her hypoxia I also discussed his case with the on-call [facility] hospitalist group. They've agreed to evaluate the patient in the emergency department for further management and disposition. Consults Time Called: 140 Consulting Physician: Kandice Frazier PA-C Returned Call: [phone] I discussed the patients case with Kandice Frazier PA-C. She is going to evaluate the patient for further treatment. Impression Primary Impression: Pneumonia Additional Impressions: Fever Hypoxia Scribe Attestation The scribe's documentation has been prepared under my direction and personally reviewed by me in its entirety. I confirm that the note above accurately reflects all work, treatment, procedures, and medical decision making performed by me. Departure Information Dispostion Being Evaluated By Hospitalist Referrals Kendell Aguirre M.D. (PCP) Problem Qualifiers
[2016-04-26 12:48] LABS: URINE APPEARANCE CLOUDY (CLEAR); URINE COLOR DK YELLOW; URINE EPITHELIAL CELL AUTO >30 /lpf (0-5); URINE NITRITE NEG (NEG); URINE PH 5.5 (4.5-7.5); URINE SPECIFIC GRAVITY 1.031 (1.000-1.030); UROBILINOGEN NEG (NEG)
[2016-04-26 12:50] LABS: MANUAL MICROSCOPIC REQUIRED? NO; REVIEW REQ? YES; URINE BILIRUBIN NEG (NEG)
[2016-04-26 13:01] LABS: URINE PATH CASTS 0-3 WBC CASTS /lpf (0)
--- NOTE | 2016-04-26 13:08 | DIAGNOSTIC IMAGING REPORT ---
TWO VIEW CHEST CLINICAL HISTORY: Generalized abdominal pain. Fever. FINDINGS: PA and lateral chest radiographs are compared to study dated 04/22/2016. Correlation is made with chest CT dated 12/26/2013. The cardiomediastinal silhouette is unremarkable. There is patchy airspace consolidation identified throughout the left lung, new from 04/22/2016. The right lung appears clear. No pleural effusion or pneumothorax is seen. The bony thorax appears intact. IMPRESSION: There is patchy airspace consolidation identified throughout the left lung, new from 04/22/2016 and typical in appearance for pneumonia. Radiographic follow-up to resolution is recommended. Electronically signed by: Micheal Treviño M.D. 04/26/2016 1:06 PM Dictated Date/Time: 04/26/2016 1:05 PM
[2016-04-26] MEDS ORDERED: LEVAQUIN 750MG / 150ML D5W IV STA (13:23)
[2016-04-26] MEDS ORDERED: PRENTAB26 PO (14:35)
[2016-04-26] MEDS: SODIUM CHLORIDE 0.9% 1000ML 1,000 ML IV SCH (14:39)
[2016-04-26] MEDS ORDERED: ONDANSETRON INJ 2 MG/ML 2 ML VIAL IV PRN (14:45)
[2016-04-26] MEDS ORDERED: IBUP-1427 PO (14:54)
[2016-04-26] MEDS ORDERED: VALA1TAB2 PO (14:54)
[2016-04-26] MEDS ORDERED: ACET-1256 PO (15:38)
[2016-04-26] MEDS ORDERED: OPTIRAY 320 IV PRN (16:00)
[2016-04-26] MEDS: ALBUT/IPRATROP 3MG/0.5MG NEB 3 ML VIAL INH SCH ×2 (16:00→18:14)
[2016-04-26] MEDS: HYDROCODONE/HOMATROPINE SYRUP 5MG/1.5MG 5ML UDP PO PRN (16:03)
--- NOTE | 2016-04-26 16:23 | History and Physical ---
History & Physical Date & Time of Service: Apr 26, 2016 at 15:06 Chief Complaint: Fever, Cough Primary Care Physician: Kendell Aguirre M.D. History of Present Illness 31 year old female who presents to the ER for evaluation of persistent fever and cough. Patient reports she started getting sick 6 days ago. She reports fever of as high as 104 at home. She reports taking Motrin and Pangburn around the clock however fevers return. She has had a dry, non productive cough. She reports a persistent headache. She reports increasing shortness of breath at rest and with exertion. She reports chest pain only with coughing. She has had nausea but denies abdominal pain or vomiting. She denies any urinary symptoms. She reports several of her family members have been sick with cold like symptoms however not as severe as hers. She has been seen in the ER two times prior to today. On 04/22 in the ER patient's PCR influenza swab was negative and chest XR did not show any acute process. Patient was offered LP however patient declined. She then returned to the ER on 04/23 and had the LP done which was negative. She also had a repeat PCR influenza swab that was negative. In the ER today, patient's CXR is showing consolidation throughout the left lung. She was hypoxic on room air at 88%, this improved with oxygen 2L via NC. Patient was given IVF, Zofran, Fentanyl, neb, and IV Levaquin. Past Medical/Surgical History Medical Problems: (1) Anxiety Status: Chronic (2) Carrier of pxjbh-0-vzjtqackjwv deficiency Status: Chronic (3) Drug-induced cardiomyopathy Permanent Comment: due to Lupron therapy, hx of EF ~ 45%, LVEF normal on echo Status: Chronic (4) Hypothyroidism Status: Chronic Surgical Problems: (1) H/O exploratory laparotomy Permanent Comment: endometriosis Status: Chronic (2) History of knee surgery Status: Chronic Family History FH: alpha 1 antitrypsin deficiency MOTHER FH: colon cancer FATHER FH: uterine cancer MOTHER Social History Smoking Status: Never Smoker Alcohol Use: none Immunizations History of Influenza Vaccine: Yes Influenza Vaccine Date: Dec 26, 2014 History of Tetanus Vaccine?: Yes Tetanus Immunization Date: Dec 04, 2015 Multi-Drug Resistant Organisms History of MDRO: No Allergies Coded Allergies: Adhesives (Verified Allergy, Mild, RASH, 04/26/16) Azelastine (Verified Allergy, Mild, FACIAL SWELLING, 04/26/16) Codeine (Verified Allergy, Mild, HIVES, 04/26/16) Propoxyphene (Verified Allergy, Mild, HIVES, VOMITING, 04/26/16) HIVE, VOMITING Tramadol (Verified Allergy, Mild, HIVES, 04/26/16) ABLE TO TAKE PO Beeswax (Verified Allergy, Unknown, SWELLING, 04/26/16) Hydromorphone (Verified Allergy, Unknown, hives , 04/26/16) HAD REACTION TO IV NOT SURE ONE TABLET FORM, Ketorolac (Verified Allergy, Unknown, HIVES, 04/26/16) Onion (Verified Allergy, Unknown, THROAT SWELLING, 04/26/16) Oxycodone (Verified Allergy, Unknown, THROAT SWELLING, 04/26/16) Penicillins (Verified Allergy, Unknown, THROAT SWELLING, 04/26/16) Tromethamine (Verified Allergy, Unknown, HIVES, 04/26/16) Home Medications Scheduled Albuterol Hfa (Ventolin Hfa), 2 PUFFS INH Q6H Escitalopram Oxalate (Lexapro), 20 MG PO DAILY Fenugreek (Trigonella Foenum-G (Fenugreek), 4 CAP PO TID Levothyroxine Sodium (Synthroid), 75 MCG PO HS Multivit/Min/Iron/Fol Ac/Pren ( Vitamin), 1 TAB PO HS Scheduled PRN Acetaminophen (Tylenol), 1,000 MG PO for Fever Hydrocodone/Acetaminophen 5MG/325MG (Pangburn 5MG/325MG), 1-2 TABLET PO Q4 PRN for Pain Ibuprofen Tab (Motrin), 600 MG PO Q6H PRN for Pain Promethazine Hcl (Phenergan), 25-50 MG PO Q6H PRN for Nausea Valacyclovir Hcl (Valtrex), 1,000 MG PO BID PRN for cold sores Review of Systems 10 point review of systems was completed with the pertinent positives and negatives noted per the HPI Physical Exam Vital Signs Date Time Temp Pulse Resp B/P Pulse Ox O2 Delivery O2 Flow Rate FiO2 04/26/16 13:23 103 91 Nasal Cannula 2.0 04/26/16 12:49 102 04/26/16 12:14 97 18 126/58 88 Room Air 04/26/16 10:39 37.4 114 18 113/65 92 Room Air General Appearance: + mild distress (coughing throughout exam) Head: normocephalic Eyes: normal inspection ENT: hearing grossly normal Neck: supple, no JVD Respiratory/Chest: no respiratory distress, + decreased breath sounds (left lung simental) Cardiovascular: no edema, normal peripheral pulses, + tachycardia (regular rhythm) Abdomen/GI: normal bowel sounds, non tender, soft Extremities/Musculoskelatal: normal inspection, no calf tenderness Neurologic/Psych: no motor/sensory deficits, alert, normal mood/affect, oriented x 3 Skin: normal color, warm/dry Diagnostics Laboratory Results Results Past 24 Hours Test 04/26/16 12:05 04/26/16 12:11 04/26/16 13:52 04/26/16 14:41 Range/Units White Blood Count 4.56 4.8-10.8 K/uL Red Blood Count 3.76 4.2-5.4 M/uL Hemoglobin 10.8 12.0-16.0 g/dL Hematocrit 31.9 37-47 % Mean Corpuscular Volume 84.8 80-100 fL Mean Corpuscular Hemoglobin 28.7 25-34 pg Mean Corpuscular Hemoglobin Concent 33.9 32-36 g/dl Platelet Count 158 130-400 K/uL Mean Platelet Volume 11.2 7.4-10.4 fL Neutrophils (%) (Auto) 71.1 % Lymphocytes (%) (Auto) 21.3 % Monocytes (%) (Auto) 6.1 % Eosinophils (%) (Auto) 1.1 % Basophils (%) (Auto) 0.2 % Neutrophils # (Auto) 3.24 1.4-6.5 K/uL Lymphocytes # (Auto) 0.97 1.2-3.4 K/uL Monocytes # (Auto) 0.28 0.11-0.59 K/uL Eosinophils # (Auto) 0.05 0-0.5 K/uL Basophils # (Auto) 0.01 0-0.2 K/uL RDW Standard Deviation 38.8 36.4-46.3 fL RDW Coefficient of Variation 12.5 11.5-14.5 % Immature Granulocyte % (Auto) 0.2 % Immature Granulocyte # (Auto) 0.01 0.00-0.02 K/uL Sodium Level 144 136-145 mmol/L Potassium Level 3.4 3.5-5.1 mmol/L Chloride Level 108 98-107 mmol/L Carbon Dioxide Level 28 21-32 mmol/L Anion Gap 8.0 3-11 mmol/L Blood Urea Nitrogen 10 7-18 mg/dl Creatinine 0.67 0.60-1.20 mg/dl Est Creatinine Clear Calc Drug Dose 125.5 ml/min Estimated GFR () 137.7 Estimated GFR (Non- 118.8 BUN/Creatinine Ratio 14.2 10-20 Random Glucose 116 70-99 mg/dl Calcium Level 8.5 8.5-10.1 mg/dl Total Bilirubin 0.4 0.2-1 mg/dl Direct Bilirubin < 0.1 0-0.2 mg/dl Aspartate Amino Transf (AST/SGOT) 49 15-37 U/L Alanine Aminotransferase (ALT/SGPT) 43 12-78 U/L Alkaline Phosphatase 113 45-117 U/L Total Protein 6.4 6.4-8.2 gm/dl Albumin 2.6 3.4-5.0 gm/dl Lipase 55 73-393 U/L Human Chorionic Gonadotropin, Qual NEG NEG Monoscreen NEG NEG Urine Color DK YELLOW Urine Appearance CLOUDY CLEAR Urine pH 5.5 4.5-7.5 Urine Specific Bradley 1.031 1.000-1.030 Urine Protein 1+ NEG Urine Glucose (UA) NEG NEG Urine Ketones TRACE NEG Urine Occult Blood NEG NEG Urine Nitrite NEG NEG Urine Bilirubin NEG NEG Urine Urobilinogen NEG NEG Urine Leukocyte Esterase TRACE NEG Urine WBC (Auto) 10-30 0-5 /hpf Urine RBC (Auto) 5-10 0-4 /hpf Urine Hyaline Casts (Auto) 1-5 0-5 /lpf Urine Epithelial Cells (Auto) >30 0-5 /lpf Urine Bacteria (Auto) 2+ NEG Urine Pathogenic Casts 0-3 WBC CASTS 0 /lpf Bedside Lactic Acid Venous 0.73 0.90-1.70 mmol/L Microbiology Results 04/26/16 Blood Culture, Received Pending 04/26/16 Blood Culture, Received Pending 04/26/16 Urine Culture, Received Pending Diagnostic Radiology CXR IMPRESSION: There is patchy airspace consolidation identified throughout the left lung, new from 04/22/2016 and typical in appearance for pneumonia. Radiographic follow-up to resolution is recommended. Impression Assessment and Plan ACUTE HYPOXIC RESPIRATORY FAILURE DUE TO CAP - admit to tele - patient presenting with cough and fever x 6 days - two prior ER visits had negative influenza swab x 2, negative LP - today patient is tachycardic, mild leukopenia (WBC 4.5), afebrile, normal lactic acid - CXR showing consolidation in left lung - tachycardia and hypoxia likely due to pneumonia, however will r/p PE with D. Dimer - s/p Levaquin in the ED, will continue with; noted patient was however has not had any milk supply due to recent illness. If patient resumes , will need to change antibiotic - blood and sputum cultures ANEMIA - hgb 13.3 2/3 - > 10.8 today - likely due to acute illness, no signs of bleeding - continue to monitor HYPOTHYROIDISM - continue levothyroxine ANXIETY - continue escitalopram DVT PROPHYLAXIS - SCDs DISPO - In my clinical judgment this beneficiary meets acute admission criteria, established by [facility], that includes being hospitalized through two midnights. VTE Prophylaxis VTE Risk Assessment Done? Y/N: Yes Risk Level: Low Note ATTENDING ADDENDUM Record reviewed. Patient interviewed and examined. Care coordinated with SCOTT Pang. Please refer to her documentation for patient's history. Briefly, 31 YO female who presented to ED with several day history of fever, cough, SOB. EXAM: General- appears to be acutely ill, but in no acute distress VS- as noted Neck- supple; no adenopathy Lungs- rhonchi left base, diffuse mild wheezing Heart- RRR, tachy Abdomen- + BS, soft, nontender Extremities- no pretibial edema or calf tenderness Neuro- alert DATA: WBC 4560. D-dimer 2120. Other lab studies as noted. CXR- patchy infiltrates left lung. CT chest- negative for pulmonary embolism; bilateral infiltrates consistent with multilobar pneumonia; mediastinal and hilar adenopathy Venous duplex lower extremities- neg for DVT. ASSESSMENT AND PLAN: Community acquired pneumonia, multilobar. Tachycardic, hypoxic. Pulmonary embolism ruled out. Blood cultures obtained in ED. [employer] ADMINISTRATOR swab for influenza A/B negative per Ag assay 2/2 and PCR assay 2/3. Check sputum culture if cough becomes productive. Received IV levofloxacin in ED which will be continued. Safety of levofloxacin with apparently unknown, so best to use formula during course of antibiotic therapy. Will need f/u imaging by CT to assure resolution of infiltrates and adenopathy. Please refer to JERI Lima's documentation for discussion of other issues. Glen Renteria MD .
[2016-04-26 16:54] VITALS: BP 106/72; PULSE 109; TEMP 37.6; O2SAT 96; Ht 160 cm; Wt 85.0 kg
[2016-04-26] MEDS ORDERED: POTASSIUM CHLORIDE 20 MEQ TABCR PO ONE (17:00)
--- NOTE | 2016-04-26 17:05 | DIAGNOSTIC IMAGING REPORT ---
CT ANGIOGRAM OF THE CHEST CLINICAL HISTORY: Hypoxia ABNORMAL CHEST X-RAY COMPARISON STUDY: 01/05/2014 TECHNIQUE: Following the IV administration of 92 mL of Optiray-320, CT angiogram of the thorax was performed from the thoracic inlet to the lung bases utilizing the pulmonary embolus protocol. Images are reviewed in the axial, sagittal, and coronal planes. IV contrast was administered without complication. MIP imaging was performed. CT DOSE: 312.02 mGy.cm FINDINGS: There are mildly enlarged mediastinal and left hilar lymph nodes, likely reactive. There was no evidence of thoracic aortic dilatation. There were no pulmonary artery filling defects to indicate acute pulmonary embolism. No pleural effusions are visualized. There are extensive airspace opacities within the left lower lobe and left upper lobe. Airspace opacities are also present within the right upper lobe right middle lobe and right lower lobe. IMPRESSION: 1. No CT evidence of acute pulmonary embolism 2. Extensive bilateral pulmonary airspace opacities left greater than right. The findings are consistent with a multilobar pneumonia. Imaging subsequent to treatment is recommended to document clearing 3. Mediastinal and hilar lymphadenopathy, likely reactive. Electronically signed by: Maynor Beal M.D. 04/26/2016 5:03 PM Dictated Date/Time: 04/26/2016 5:00 PM
[2016-04-26] MEDS ORDERED: FENU1CAP2 PO (17:06)
[2016-04-26] MEDS ORDERED: ESCI1TAB10 PO (17:06)
[2016-04-26] MEDS: ACETAMINOPHEN 325 MG TAB PO PRN ×2 (17:10→21:49)
[2016-04-26 17:20] VITALS: TEMP 38.2
[2016-04-26] MEDS ORDERED: PROMETHAZINE HCL INJ 12.5 MG in SODIUM CHLORIDE 0.9% 50ML 50 ML IV PRN (17:30)
[2016-04-26 18:41] VITALS: PULSE 110; O2SAT 91
--- NOTE | 2016-04-26 19:23 | DIAGNOSTIC IMAGING REPORT ---
ULTRASOUND VENOUS DOPPLER LWR EXT BILA CLINICAL HISTORY: Short of breath, elevated d-dimer. Cough. Fever. COMPARISON STUDY: No previous studies for comparison. FINDINGS: Real-time and color flow Doppler imaging were performed. Flow was seen within the femoral, popliteal and calf veins with no intraluminal thrombus demonstrated. The saphenous vein is patent. IMPRESSION: No evidence of lower extremity DVT. Electronically signed by: Maynor Beal M.D. 04/26/2016 7:21 PM Dictated Date/Time: 04/26/2016 7:14 PM
[2016-04-26] MEDS: IBUPROFEN 200 MG TAB PO PRN (19:25)
[2016-04-26 20:15] VITALS: BP 107/70; PULSE 102; TEMP 37.5; O2SAT 94
[2016-04-26] MEDS: LEVOTHYROXINE 75 MCG TAB PO SCH (21:25)
[2016-04-26] MEDS ORDERED: NURSING VERBAL MED ORDER ONE (21:45)
[2016-04-26] MEDS: ESCITALOPRAM OXALATE 20 MG TAB PO SCH (21:48)
[2016-04-26 23:45] VITALS: BP 103/69; PULSE 95; TEMP 37.1; O2SAT 91
[2016-04-27] VITALS (14 sets, daily range): BP systolic 105–121; BP diastolic 71–82; PULSE 80–100; TEMP 36.6–37.1; O2SAT 90–95
[2016-04-27] MEDS: SODIUM CHLORIDE 0.9% 1000ML 1,000 ML IV SCH ×3 (00:39→20:30)
[2016-04-27] MEDS ORDERED: COUGH DROP (SUGAR FREE) LOZ 24 LOZ/1 BOX ONE (01:41)
[2016-04-27] MEDS ORDERED: COUGH DROP (SUGAR FREE) LOZ 24 LOZ/1 BOX PO PRN (01:45)
[2016-04-27] MEDS: HYDROCODONE/HOMATROPINE SYRUP 5MG/1.5MG 5ML UDP PO PRN ×2 (01:45→18:02)
[2016-04-27 06:37] LABS: HEMATOCRIT 28.6 % (37-47); MEAN CELL VOLUME 86.4 fL (80-100); MEAN CORPUSCULAR HEMOGLOBIN 28.7 pg (25-34); MEAN CORPUSCULAR HGB CONC 33.2 g/dl (32-36); PLATELET COUNT 145 K/uL (130-400); RED BLOOD COUNT 3.31 M/uL (4.2-5.4); WHITE BLOOD COUNT 3.27 K/uL (4.8-10.8)
[2016-04-27 07:00] LABS: BUN/CREATININE RATIO 12.6 (10-20); CREATININE 0.54 mg/dl (0.60-1.20); POTASSIUM 3.3 mmol/L (3.5-5.1)
[2016-04-27] MEDS: ACETAMINOPHEN 325 MG TAB PO PRN ×3 (07:13→20:30)
[2016-04-27] MEDS: IBUPROFEN 200 MG TAB PO PRN ×3 (07:14→22:14)
[2016-04-27] MEDS: ALBUT/IPRATROP 3MG/0.5MG NEB 3 ML VIAL INH SCH ×5 (07:50→22:19)
[2016-04-27] MEDS ORDERED: ESCITALOPRAM OXALATE 20 MG TAB PO SCH (09:00)
[2016-04-27] MEDS ORDERED: POTASSIUM CHLORIDE 10 MEQ TABCR PO ONE (10:45)
[2016-04-27] MEDS: LEVOFLOXACIN / D5W 500 MG in PREMIXED IN D5W 100 ML IV SCH (14:17)
--- NOTE | 2016-04-27 16:53 | Progress Note ---
Internal Med Progress Note Date of Service: Apr 27, 2016. Provider Documentation: SUBJECTIVE: The patient was seen and examined A little better Denies any fever,chills No CP,SOB and cough is minimal OBJECTIVE: Vital Signs-as noted below Exam: General-Minimal distress at rest Eyes-normal ENT-normal Neck-supple Lungs-decreased breath sound bilaterally ,coarse crackles left base Heart-Regular,no murmur Abdomen-Benign,no masses,bowel sound present Extremities-No edema Neuro-AAOc3 Lab data as noted below. ASSESSMENT & PLAN: ACUTE HYPOXIC RESPIRATORY FAILURE DUE TO CAP-Multilobar Pneumonia - patient presented with cough and fever x 6 days - two prior ER visits had negative influenza swab x 2, negative LP - Noted to be have tachycardic, Tachypnea,use of accessory muscles for breathing,Low Saturation on RA 88%mild leukopenia (WBC 4.5), afebrile, normal lactic acid - CXR showing consolidation in left lung - CTA -negative for PE but showed multilobar pneumonia ::1. No CT evidence of acute pulmonary embolism 2. Extensive bilateral pulmonary airspace opacities left greater than right. The findings are consistent with a multilobar pneumonia. Imaging subsequent to treatment is recommended to document clearing 3. Mediastinal and hilar lymphadenopathy, likely reactive. - Has been on Levaquin in the ED, will continue with; noted patient was however has not had any milk supply due to recent illness. -Advised not to do breast feeding while on Antibiotic - blood and sputum cultures pending -MRSA -negative -Urine -negative ANEMIA-Post state - hgb 13.3 2/3 - > 10.8 today - likely due to acute illness, no signs of bleeding - Post state -monitor HYPOTHYROIDISM - continue levothyroxine ANXIETY - continue escitalopram DVT PROPHYLAXIS - SCDs DISPO Discharge in 2-3 days Vital Signs: Date Time Temp Pulse Resp B/P Pulse Ox O2 Delivery O2 Flow Rate FiO2 04/27/16 16:20 92 18 95 Room Air 04/27/16 16:00 92 Nasal Cannula 2.0 Humidified Oxygen 04/27/16 14:45 36.9 80 20 120/80 92 2.0 04/27/16 12:00 92 Nasal Cannula 2.0 Humidified Oxygen 04/27/16 11:59 98 18 93 Room Air 04/27/16 11:12 36.6 92 18 105/71 91 2.0 04/27/16 09:20 92 Room Air 04/27/16 07:50 100 18 90 Room Air 04/27/16 07:45 91 Nasal Cannula 2.0 Humidified Oxygen 04/27/16 07:18 36.9 96 20 118/80 91 04/27/16 04:52 36.7 95 20 117/80 90 Room Air 04/27/16 04:00 Nasal Cannula 2.0 04/27/16 00:00 Nasal Cannula 2.0 04/26/16 23:45 37.1 95 18 103/69 91 Nasal Cannula 2.0 04/26/16 20:15 37.5 102 18 107/70 94 Room Air 04/26/16 20:00 Nasal Cannula 2.0 04/26/16 18:41 110 20 91 Room Air 04/26/16 17:20 38.2 04/26/16 16:54 37.6 109 20 106/72 96 Nasal Cannula 2.0 Lab Results: Results Past 24 Hours Test 04/27/16 05:45 Range/Units White Blood Count 3.27 4.8-10.8 K/uL Red Blood Count 3.31 4.2-5.4 M/uL Hemoglobin 9.5 12.0-16.0 g/dL Hematocrit 28.6 37-47 % Mean Corpuscular Volume 86.4 80-100 fL Mean Corpuscular Hemoglobin 28.7 25-34 pg Mean Corpuscular Hemoglobin Concent 33.2 32-36 g/dl RDW Standard Deviation 40.3 36.4-46.3 fL RDW Coefficient of Variation 12.7 11.5-14.5 % Platelet Count 145 130-400 K/uL Mean Platelet Volume 11.0 7.4-10.4 fL Sodium Level 146 136-145 mmol/L Potassium Level 3.3 3.5-5.1 mmol/L Chloride Level 110 98-107 mmol/L Carbon Dioxide Level 27 21-32 mmol/L Anion Gap 9.0 3-11 mmol/L Blood Urea Nitrogen 7 7-18 mg/dl Creatinine 0.54 0.60-1.20 mg/dl Est Creatinine Clear Calc Drug Dose 155.7 ml/min Estimated GFR () 147.8 Estimated GFR (Non- 127.5 BUN/Creatinine Ratio 12.6 10-20 Random Glucose 85 70-99 mg/dl Calcium Level 8.0 8.5-10.1 mg/dl Microbiology Results 04/26/16 MRSA DNA Surveillance Screen - Final, Complete Specimen Negative for MRSA by DNA Probe
[2016-04-27] MEDS: ESCITALOPRAM OXALATE 20 MG TAB PO SCH (20:33)
[2016-04-27] MEDS: LEVOTHYROXINE 75 MCG TAB PO SCH (20:33)
[2016-04-28] VITALS (17 sets, daily range): BP systolic 119–138; BP diastolic 71–83; PULSE 79–106; TEMP 36.6–37.5; O2SAT 79–97
[2016-04-28] MEDS: SODIUM CHLORIDE 0.9% 1000ML 1,000 ML IV SCH ×2 (06:20→20:48)
[2016-04-28] MEDS: ACETAMINOPHEN 325 MG TAB PO PRN ×2 (06:21→15:35)
[2016-04-28] MEDS: ALBUT/IPRATROP 3MG/0.5MG NEB 3 ML VIAL INH SCH ×5 (06:32→23:20)
[2016-04-28] MEDS: LORAZEPAM 0.5 MG TAB PO PRN (06:42)
[2016-04-28 07:35] LABS: BLOOD UREA NITROGEN 5 mg/dl (7-18); BUN/CREATININE RATIO 9.1 (10-20); CARBON DIOXIDE 23 mmol/L (21-32); CHLORIDE 111 mmol/L (98-107); CREATININE 0.52 mg/dl (0.60-1.20); GLUCOSE 88 mg/dl (70-99); SODIUM 147 mmol/L (136-145)
[2016-04-28 07:51] LABS: ALLEN TEST POS (POS); ARTERIAL BLD GAS O2 SATURATION 91.1 % (90-95); ARTERIAL BLOOD GAS BASE EXCESS 1.2 mEq/L (-9-1.8); ARTERIAL BLOOD GAS HCO3 25 mmol/L (19-24); ARTERIAL BLOOD GAS PO2 65 mm/Hg (80-95); ARTERIAL BLOOD GAS pH 7.47 (7.35-7.45); O2 ADMINISTRATION 3L
--- NOTE | 2016-04-28 08:30 | DIAGNOSTIC IMAGING REPORT ---
SINGLE VIEW CHEST CLINICAL HISTORY: Follow-up pneumonia. Hypoxia. FINDINGS: An AP, portable, upright chest radiograph is compared to chest x-ray and chest CT dated 04/26/2016. The examination is degraded by portable technique and patient rotation. The cardiomediastinal silhouette is unremarkable. There is patchy airspace consolidation identified throughout both lungs, significantly increased from the 04/26/2016 examination. Small pleural effusions are identified. The bony thorax appears intact. IMPRESSION: Multifocal bilateral patchy airspace consolidation has significantly increased from 04/26/2016 and there are small pleural effusions. This likely represents multifocal pneumonia. ARDS could also have this appearance. Clinical correlation will be required and radiographic follow-up to resolution is recommended. Electronically signed by: Micheal Treviño M.D. 04/28/2016 8:28 AM Dictated Date/Time: 04/28/2016 8:26 AM
[2016-04-28 08:40] LABS: HEMATOCRIT 29.8 % (37-47); MEAN CELL VOLUME 85.1 fL (80-100); MEAN CORPUSCULAR HEMOGLOBIN 28.9 pg (25-34); MEAN CORPUSCULAR HGB CONC 33.9 g/dl (32-36); MEAN PLATELET VOLUME 11.1 fL (7.4-10.4); PLATELET COUNT 183 K/uL (130-400); WHITE BLOOD COUNT 4.71 K/uL (4.8-10.8)
[2016-04-28 09:03] LABS: PLT ESTIMATE NORMAL
[2016-04-28] MEDS: LEVOFLOXACIN / D5W 500 MG in PREMIXED IN D5W 100 ML IV SCH (13:41)
--- NOTE | 2016-04-28 14:01 | Progress Note ---
Internal Med Progress Note Date of Service: Apr 28, 2016. Provider Documentation: SUBJECTIVE: The patient was seen and examined Has had low saturation last night Denies any fever,chills No CP,SOB and cough is minimal Says not yet any better OBJECTIVE: Vital Signs-as noted below Exam: General-Minimal distress at rest Eyes-normal ENT-normal Neck-supple Lungs-decreased breath sound bilaterally ,coarse crackles left base and mid lung Heart-Regular,no murmur Abdomen-Benign,no masses,bowel sound present Extremities-No edema Neuro-AAOc3 Lab data as noted below. ASSESSMENT & PLAN: ACUTE HYPOXIC RESPIRATORY FAILURE DUE TO CAP-Multilobar Pneumonia - patient presented with cough and fever x 6 days - two prior ER visits had negative influenza swab x 2, negative LP - Noted to be have tachycardic, Tachypnea,use of accessory muscles for breathing,Low Saturation on RA 88%mild leukopenia (WBC 4.5), afebrile, normal lactic acid - CXR showing consolidation in left lung - CTA -negative for PE but showed multilobar pneumonia ::1. No CT evidence of acute pulmonary embolism 2. Extensive bilateral pulmonary airspace opacities left greater than right. The findings are consistent with a multilobar pneumonia. Imaging subsequent to treatment is recommended to document clearing 3. Mediastinal and hilar lymphadenopathy, likely reactive. - Has been on Levaquin in the ED, will continue with; noted patient was however has not had any milk supply due to recent illness. -Advised not to do breast feeding while on Antibiotic - blood and sputum cultures pending -MRSA -negative -Urine -Gardnerella like organism -Clinically a little better -Check CXR in AM,continue IV Levaquin ANEMIA-Post state - hgb 13.3 2/3 - > 10.8 today - likely due to acute illness, no signs of bleeding - Post state -monitor HYPOTHYROIDISM - continue levothyroxine ANXIETY - continue escitalopram DVT PROPHYLAXIS - SCDs DISPO Discharge in 2-3 days Check CXR in AM Vital Signs: Date Time Temp Pulse Resp B/P Pulse Ox O2 Delivery O2 Flow Rate FiO2 04/28/16 11:28 37.0 98 18 121/80 96 04/28/16 10:49 90 20 96 Nasal Cannula 3.0 04/28/16 08:00 93 Nasal Cannula 3.0 04/28/16 07:42 36.8 93 16 122/81 93 Nasal Cannula 3.0 04/28/16 06:32 93 20 92 Nasal Cannula 3.0 04/28/16 06:22 94 Nasal Cannula 3.0 04/28/16 06:20 79 Room Air 04/28/16 04:10 36.6 79 16 134/83 91 Nasal Cannula 2.0 Humidified Oxygen 04/28/16 04:00 Nasal Cannula 2.0 04/28/16 00:08 37.5 104 18 119/71 95 Nasal Cannula 2.0 04/28/16 00:00 Nasal Cannula 2.0 04/27/16 22:19 93 20 92 Room Air 04/27/16 20:00 Room Air 04/27/16 19:47 37.1 85 18 121/82 93 Humidified Air 2.0 04/27/16 19:45 90 18 94 Room Air 04/27/16 16:20 92 18 95 Room Air 04/27/16 16:00 92 Nasal Cannula 2.0 Humidified Oxygen 04/27/16 14:45 36.9 80 20 120/80 92 2.0 Lab Results: Results Past 24 Hours Test 04/28/16 06:55 04/28/16 07:40 04/28/16 08:00 Range/Units White Blood Count 4.71 4.8-10.8 K/uL Red Blood Count 3.50 4.2-5.4 M/uL Hemoglobin 10.1 12.0-16.0 g/dL Hematocrit 29.8 37-47 % Mean Corpuscular Volume 85.1 80-100 fL Mean Corpuscular Hemoglobin 28.9 25-34 pg Mean Corpuscular Hemoglobin Concent 33.9 32-36 g/dl RDW Standard Deviation 39.7 36.4-46.3 fL RDW Coefficient of Variation 12.9 11.5-14.5 % Platelet Count 183 130-400 K/uL Mean Platelet Volume 11.1 7.4-10.4 fL Platelet Estimate NORMAL Sodium Level 147 136-145 mmol/L Potassium Level 3.4 3.5-5.1 mmol/L Chloride Level 111 98-107 mmol/L Carbon Dioxide Level 23 21-32 mmol/L Anion Gap 13.0 3-11 mmol/L Blood Urea Nitrogen 5 7-18 mg/dl Creatinine 0.52 0.60-1.20 mg/dl Est Creatinine Clear Calc Drug Dose 165.9 ml/min Estimated GFR () 149.6 Estimated GFR (Non- 129.1 BUN/Creatinine Ratio 9.1 10-20 Random Glucose 88 70-99 mg/dl Calcium Level 8.0 8.5-10.1 mg/dl Arterial Blood pH 7.47 7.35-7.45 Arterial Blood Partial Pressure CO2 35 35-46 mmHg Arterial Blood Partial Pressure O2 65 80-95 mm/Hg Arterial Blood HCO3 25 19-24 mmol/L Arterial Blood Oxygen Saturation 91.1 90-95 % Arterial Blood Base Excess 1.2 -9-1.8 mEq/L Arterial Blood Gas Delivery 3L Sadiq Test POS POS
[2016-04-28] MEDS ORDERED: ALBUTEROL 0.083% NEBU SOLN 3 ML VIAL INH STA (14:24)
[2016-04-28] MEDS ORDERED: ALBUTEROL 0.083% NEBU SOLN 3 ML VIAL INH PRN (14:30)
[2016-04-28] MEDS ORDERED: VANCOMYCIN CONSULT ACTIVE PRN (15:30)
[2016-04-28] MEDS ORDERED: VANCOMYCIN INJ 2,150 MG in SODIUM CHLORIDE 0.9% 500ML 500 ML IV ONE (16:00)
[2016-04-28] MEDS: GUAIFENESIN SUGAR FREE 100 MG/5 ML UDC PO PRN ×2 (16:00→22:25)
--- NOTE | 2016-04-28 16:12 | Pharmacy Progress Note ---
Pharmacy Antibiotic Consult Date of Service: Apr 28, 2016. Pharmacy Dosing Scope Pharmacy is consulted to initiate vancomycin IV dosing therapy, order appropriate labs and adjust drug dose/frequency. Subjective The patient is a 31 year old female admitted on Apr 26, 2016 at 14:41 with post- flu pneumonia. She has been on Levaquin 500 mg IV x 2 days and does not feel that she has improved. I spoke with Dr Su, and he is worried about covering for Staph. Objective Height (Feet): 5 Height (Inches): 3.00 Weight (Kilograms): 86.000 Lab Results (24hrs): Laboratory Tests Test 04/28/16 06:55 BUN/Creatinine Ratio 9.1 Blood Urea Nitrogen 5 mg/dl Creatinine 0.52 mg/dl White Blood Count 4.71 K/uL Micro Results: RUN DATE: 04/26/16 [facility] LAB PAGE 1 RUN TIME: 1926 Specimen Inquiry PATIENT: KERRY MIRANDA LOC: [facility] # : [id number] AGE/SX: 31/F ROOM: N289 REG : 04/26/[address]: Nicholas Su M.D. : 1985 BED: 2 DIS : STATUS: ADM IN TLOC: SPEC #: [id number] JESUS: 04/26/16 STATUS: [place] REQ #: [id number] RECD: 04/26/[address] [facility] [address]: Sonali Lima CRNP SOURCE: NASAL ENTR: 04/26/16 [facility] DR: Glen Renteria M.D. SPDESC: Kendell Aguirre M.D., Manabendra, M.D. Kelly, Colleen A., PA-C ORDERED: MRSA DNA COMMENTS: Has Specimen Been Obtained/Collected? Y Procedure Result Verified Site MRSA DNA (NASAL SWAB) Final 04/26/16 Specimen Negative for MRSA by DNA Probe Assessment & Plan Loading dose: vancomycin 2150 mg (25 mg/kg) IV X 1 dose then: vancomycin 1300 mg IV every 8 hours (15 mg/kg; population pharmacokinetics show a half-life of 8 hours). Goal peak level estimate: between 35-40 mcg/mL. Goal trough level estimate: between 15 - 20 mcg/mL (indication pneumonia). Trough been ordered for: prior to 1600 dose. Pharmacy will continue to follow and will adjust dose/frequency as necessary. Thank you
[2016-04-28] MEDS ORDERED: LEVOFLOXACIN 250MG / D5W IV ONE (17:00)
[2016-04-28] MEDS: IBUPROFEN 200 MG TAB PO PRN (17:29)
[2016-04-28] MEDS: LEVOTHYROXINE 75 MCG TAB PO SCH (20:49)
[2016-04-28] MEDS: ESCITALOPRAM OXALATE 20 MG TAB PO SCH (20:49)
[2016-04-29] VITALS (10 sets, daily range): BP systolic 119–143; BP diastolic 81–93; PULSE 74–105; TEMP 36.7–37.2; O2SAT 90–98
[2016-04-29] MEDS: LORAZEPAM 0.5 MG TAB PO PRN ×2 (00:25→22:45)
[2016-04-29 06:46] LABS: HEMATOCRIT 29.3 % (37-47); MEAN CELL VOLUME 85.2 fL (80-100); MEAN CORPUSCULAR HEMOGLOBIN 28.2 pg (25-34); MEAN CORPUSCULAR HGB CONC 33.1 g/dl (32-36); MEAN PLATELET VOLUME 10.5 fL (7.4-10.4); PLATELET COUNT 191 K/uL (130-400); RED BLOOD COUNT 3.44 M/uL (4.2-5.4); WHITE BLOOD COUNT 5.09 K/uL (4.8-10.8)
[2016-04-29] MEDS: ALBUT/IPRATROP 3MG/0.5MG NEB 3 ML VIAL INH SCH ×4 (06:59→20:05)
[2016-04-29 07:17] LABS: BLOOD UREA NITROGEN 3 mg/dl (7-18); CALCIUM 8.2 mg/dl (8.5-10.1); CARBON DIOXIDE 27 mmol/L (21-32); CHLORIDE 110 mmol/L (98-107); CREATININE 0.48 mg/dl (0.60-1.20); GLUCOSE 95 mg/dl (70-99); MAGNESIUM 1.8 mg/dl (1.8-2.4); PHOSPHORUS 3.3 mg/dl (2.5-4.9); POTASSIUM 3.2 mmol/L (3.5-5.1); SODIUM 146 mmol/L (136-145)
[2016-04-29] MEDS: ACETAMINOPHEN 325 MG TAB PO PRN ×2 (08:06→18:09)
--- NOTE | 2016-04-29 08:18 | PULMONARY CONSULTATION ---
DATE OF CONSULTATION: 04/29/2016 DATE OF CONSULTATION: 04/29/2016. HISTORY OF PRESENT ILLNESS: The patient is a pleasant 31-year-old female who was admitted to the hospital on the through the Emergency Room with bilateral pneumonia and Dr. Su has asked me to evaluate the patient from a pulmonary standpoint. The patient was seen in the Emergency Room several times with flu-like illness. On 04/22/2016 she had complaints of rhinitis associated with nonproductive cough and had been seen by Dr. Garner, had a fever of 103 with headache and body aches and wheezing. Her evaluation at that time revealed an unremarkable white count. Chest x-ray on the was unremarkable. She was sent home with supportive care, fluids. A lumbar puncture was suggested at that time and she declined. She then returned to the Emergency Room on the with continued headache and flu-like symptoms, had lumbar puncture performed that was unremarkable with a paucity of inflammatory cells, normal protein. According to the record Gram stain showed no organisms. Culture so far is unremarkable. She has developed a cough, some shortness of breath and was seen an additional time in the Emergency Room by Dr. Tapia. At that time she had a persistent fever for about 6 days. She states it was up to 104 at home with a cough and sore throat. She then was admitted to the hospital and placed on IV antimicrobial agents. This morning, she states she is improved. She denies aspiration, nausea, vomiting or diarrhea, muscle aches have improved. Fentanyl helped with her headaches. She does have a history of cardiomyopathy, PCOS and alpha-1 antitrypsin deficiency. She is followed with pulmonary function studies by Dr. Aguirre and apparently they have been unremarkable. She does have 3 cats at home. One sleeps in her bed close to her . They do not seem to bother her. Her travel history and environmental histories otherwise have been unremarkable. Initial chest x-ray several days ago was unremarkable. She recently had a delivery was a , has 2 children at home now, 4-year-old and a son. According to that record from 02/19/2016 she did well without any particular problems. She did develop she states a cold associated with some rhinitis about 2 weeks before this admission with a nonproductive cough which was minimal and some body aches. Apparently one of her family members had a similar illness. Nonetheless, she is comfortable this morning. When I walked in the room, she was sleeping supine with respiratory rate of 14 and comfortable. PAST MEDICAL HISTORY: Significant for drug induced cardiomyopathy, hypothyroidism. PAST SURGICAL HISTORY: Positive for endometriosis with exploratory laparotomy and knee surgery and . FAMILY HISTORY: Father has alpha 1 antitrypsin deficiency. Mother is healthy. Father apparently had colon carcinoma. Mother had uterine carcinoma. SOCIAL HISTORY: He has never been a tobacco or alcohol user. She is , lives with her and 2 children now. Her is in construction. He does not bring home any industrial toxins. She has no birds at home. She has not been exposed to anyone otherwise except her family members have been no other similar illness. There is no construction around her home. She did get influenza immunization in 2015. Tetanus immunization in 2016. ALLERGIES: Multiple and noted in the record. SHE IS ALLERGIC TO OXYCODONE WHICH APPARENTLY CAUSES THROAT SWELLING AND CODEINE BUT YET SHE TAKES THOSE MEDICINES. MEDICATIONS: Noted. She is on a medicine called sachin as well. I am not familiar with that medicine. I will evaluate that through up-to-date. PHYSICAL EXAMINATION: VITAL SIGNS: Stable and she is afebrile. She has been afebrile since admission. Her temperature on the 6th at 1558 hours was 38. Blood pressure 133/83, oxygen saturation 93% on 2 liters. I O was 3152 in and 2550 out. Weight is 85.5 kilograms, probably stable for her. She was 91.63 kilograms on the 3rd after her delivery and was 03/23/2016. HEAD, EYES, EARS, NOSE, AND THROAT: Unremarkable. No posterior pharyngeal abnormalities noted. No adenopathy is noted. Thyroid normal. HEART: Regular rate and rhythm. No murmurs are heard. Second heart sound normal. LUNGS: Reveal few crackles at the left base posterior. No rales are noted. There is no evidence of any heart failure. No fremitus is noted. No dullness to percussion is noted. ABDOMEN: Soft, nontender. EXTREMITIES: She has no cyanosis, clubbing or edema. A CT of the chest was performed using the pulmonary embolus protocol and IV contrast was used. There is no evidence of any pulmonary embolism. Extensive bilateral opacities are noted in all lung simental, especially left mid lung field and left lower lobe. This is consistent with multilobar pneumonia. MRSA DNA surveillance screen is negative. Gram stain of the sputum is pending. Blood cultures from the 6th are unremarkable. Urine culture grew out Gardnerella like bacilli. Urinalysis did reveal 10-30 white blood cells. [place] screen is negative. The legionella antigen through the urine is pending. Sodium 146, potassium 3.2, chloride 110, BUN is 3, creatinine 0.4, magnesium and phosphorus are normal. D-dimer of course was elevated. Blood gas on the revealed a pH 7.47, pCO2 of 35, pO2 of 65 on 3 liters. White count has been normal at 5.09 with an unremarkable differential. Estimate the platelets were normal. She has a hemoglobin of 9.7. The electrocardiogram reveals sinus tachycardia with premature atrial contractions, nonspecific ST-T wave changes. IMPRESSION: 1. Bilateral pneumonia. This is in the setting of respiratory tract infection and flu-like symptoms even though the influenza A and B PCRs were negative. Certainly staph pneumonia needs to be considered. A viral pneumonia is also a possibility as well. She has been on valacyclovir at the time of admission. 2. Anemia post . RECOMMENDATIONS: 1. Continue with her present medications including Levaquin and vancomycin. 2. I would suggest getting an infectious disease evaluation to see if anything else would need to be done at this point. Will await the Legionella titer as well, although I think it is unlikely at this time of the year Legionella would cause this disorder, but it certainly needs to be included in the differential. My thought is that this is probably a viral pneumonia with a normal white count, no significant sputum production and almost normal exam. I will continue with high flow O2, good DVT prophylaxis and oxygen. I suggest that the patient get up and out of bed walking as much as she can. According to the patient, she was out walking yesterday and walked in the hallways without difficulty. Thanks for asking me to evaluate Mrs. Dave and I will be glad to follow along with you during her hospital stay. KYLEE
--- NOTE | 2016-04-29 08:33 | DIAGNOSTIC IMAGING REPORT ---
CHEST 2 VIEWS ROUTINE CLINICAL HISTORY: Pneumonia. COMPARISON STUDY: Chest radiograph April 28, 2016. FINDINGS: Extensive bilateral airspace opacities with interstitial thickening persist. There is no pneumothorax. Cardiac size is normal. Mediastinal contours are normal. No pleural effusion is identified. IMPRESSION: No significant change in extensive bilateral airspace opacities which suggest pneumonia. Electronically signed by: Chavez Flaherty M.D. 04/29/2016 8:32 AM Dictated Date/Time: 04/29/2016 8:28 AM
[2016-04-29] MEDS ORDERED: POTASSIUM CHLORIDE 10 MEQ TABCR PO ONE (08:45)
[2016-04-29] MEDS ORDERED: VANCOMYCIN INJ 1,750 MG in SODIUM CHLORIDE 0.9% 500ML 500 ML IV ONE (09:00)
--- NOTE | 2016-04-29 10:04 | Medical Consult ---
Consultation Date of Consultation: Apr 29, 2016. Attending Physician: Nicholas Su M.D. Reason for Consultation: multilobar pneumonia History of Present Illness 31-year-old female with history of alpha 1 antitrypsin deficiency, hypothyroidism, and polycystic ovaries, who is approximately 10 weeks status post , who has been ill since that time with symptoms of an upper respiratory tract infection with congestion, sore throat, and mild cough. more recently, several family members became ill with respiratory symptoms. Patient did well until last week when she had recurrence of sore throat and congestion along with cough and severe headache. She was seen in the emergency department where chest x-ray was reported negative and flu studies were negative and patient was discharged. She returned the next day because of severe headache, underwent lumbar puncture which was unremarkable, and again discharged home. She then developed worsening cough, shortness of breath, fever to 103 degrees, without hemoptysis. She was found to have multilobar pneumonia and admitted for further management.Has been started on vancomycin and levofloxacin. Cultures are no growth to date. Patient feeling slightly better this morning. No significant travel history, has 3 cats but no other pets. 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 (4) Hypothyroidism Surgical Problems: (1) H/O exploratory laparotomy (2) History of knee surgery Family History FH: alpha 1 antitrypsin deficiency MOTHER FH: colon cancer FATHER FH: uterine cancer MOTHER Social History Smoking Status: Never Smoker Alcohol Use: none Housing Status: lives with family Allergies Coded Allergies: Adhesives (Verified Allergy, Mild, RASH, 04/26/16) Azelastine (Verified Allergy, Mild, FACIAL SWELLING, 04/26/16) Codeine (Verified Allergy, Mild, HIVES, 04/26/16) Propoxyphene (Verified Allergy, Mild, HIVES, VOMITING, 04/26/16) HIVE, VOMITING Tramadol (Verified Allergy, Mild, HIVES, 04/26/16) ABLE TO TAKE PO Beeswax (Verified Allergy, Unknown, SWELLING, 04/26/16) Hydromorphone (Verified Allergy, Unknown, hives , 04/26/16) HAD REACTION TO IV NOT SURE ONE TABLET FORM, Ketorolac (Verified Allergy, Unknown, HIVES, 04/26/16) Onion (Verified Allergy, Unknown, THROAT SWELLING, 04/26/16) Oxycodone (Verified Allergy, Unknown, THROAT SWELLING, 04/26/16) Penicillins (Verified Allergy, Unknown, THROAT SWELLING, 04/26/16) Tromethamine (Verified Allergy, Unknown, HIVES, 04/26/16) Current Inpatient Medications Current Inpatient Medications Medications (Trade) Dose Ordered Sig/Cori Route Start Time Stop Time Status Last Admin Dose Admin Sodium Chloride (Nss 1000ml) 1,000 ml @ 50 mls/hr Q20H IV 04/26/16 14:39 05/26/16 14:38 04/28/16 20:48 50 MLS/HR Acetaminophen (Tylenol Tab) 650 mg Q4H PRN PO 04/26/16 14:45 05/26/16 14:44 04/29/16 08:06 650 MG Ondansetron HCl (Zofran Inj) 4 mg Q6H PRN IV 04/26/16 14:45 05/26/16 14:44 Ibuprofen (Advil Tab) 400 mg QID PRN PO 04/26/16 14:45 05/26/16 14:44 04/28/16 17:29 400 MG Hydrocodone Bit/ Homatropine Methylb (Hycodan Syrup) 5 ml Q6H PRN PO 04/26/16 15:00 05/10/16 14:59 04/27/16 18:02 5 ML Albuterol/ Ipratropium (Duoneb) 3 ml QIDR INH 04/26/16 16:00 05/26/16 15:59 04/29/16 06:59 3 ML Levothyroxine Sodium (Synthroid Tab) 75 mcg HS PO 04/26/16 21:00 05/26/16 20:59 04/28/16 20:49 75 MCG Ioversol 100 ml 100 ml UD PRN IV 04/26/16 16:00 04/30/16 15:59 Promethazine HCl/ Sodium Chloride (Phenergan Inj/ Nss 50ml) 50.5 ml @ 204 mls/hr Q6H PRN IV 04/26/16 17:30 05/26/16 17:29 04/26/16 17:41 204 MLS/HR Escitalopram Oxalate (Lexapro Tab) 20 mg HS PO 04/26/16 22:00 05/26/16 21:59 04/28/16 20:49 20 MG Menthol (Nice Janie) 1 janie PRN PRN PO 04/27/16 01:45 05/27/16 01:44 Lorazepam (Ativan Tab) 0.5 mg Q8 PRN PO 04/28/16 06:30 05/28/16 06:29 04/29/16 00:25 0.5 MG Albuterol Sulfate (Ventolin 0.083% 2.5MG/3ML Neb) 2.5 mg Q6R PRN INH 04/28/16 14:30 05/28/16 14:29 Guaifenesin (Robitussin Sugar Free Syrup) 100 mg Q6H PRN PO 04/28/16 14:30 05/28/16 14:29 04/28/16 22:25 100 MG Vancomycin HCl 1 ea 1 ea UD PRN N/A 04/28/16 15:30 05/28/16 15:29 Levofloxacin 750 mg/Prmx 150 ml @ 100 mls/hr Q24H IV 04/29/16 14:00 05/03/16 13:59 Vancomycin HCl 1750 mg/Sodium Chloride 535 ml @ 200 mls/hr NOW ONCE IV 04/29/16 09:00 04/29/16 11:40 04/29/16 09:53 200 MLS/HR Vancomycin HCl/ Sodium Chloride (Vancomycin Inj/ Nss 250ml) 276 ml @ 125 mls/hr Q8H IV 04/29/16 16:00 05/06/16 15:59 Review of Systems Constitutional: + chills, + fatigue, + fever, + weakness ENT: + nasal symptoms, + sore throat Respiratory: + cough, + shortness of breath Cardiovascular: No problem reported Abdomen: No problem reported Musculoskeletal: + joint pain, + muscle pain Genitourinary - Female: No problem reported Neurologic: No problem reported Psychiatric: No problem reported Endocrine: No problem reported Hematologic / Lymphatic: No problem reported Integumentary: No problem reported Allergic / Immunologic: No problem reported Physical Exam Date Time Temp Pulse Resp B/P Pulse Ox O2 Delivery O2 Flow Rate FiO2 04/29/16 07:45 Nasal Cannula 2.0 04/29/16 07:16 36.7 95 18 133/83 93 Nasal Cannula 2.0 04/29/16 06:59 105 20 90 Nasal Cannula 2.0 04/29/16 04:14 37.1 89 18 119/81 93 Nasal Cannula 2.0 04/29/16 04:00 Nasal Cannula 2.0 04/29/16 00:00 Nasal Cannula 2.0 04/28/16 23:23 37.0 83 18 122/76 96 Nasal Cannula 2.0 Humidified Oxygen 04/28/16 23:20 84 20 94 Nasal Cannula 2.0 04/28/16 20:01 37.0 86 18 137/83 95 Nasal Cannula 2.0 04/28/16 20:00 Room Air 04/28/16 19:05 90 20 95 Nasal Cannula 2.0 04/28/16 16:07 94 Nasal Cannula 3.0 04/28/16 16:04 37.5 106 16 138/81 94 3.0 04/28/16 14:41 94 20 97 Nasal Cannula 3.0 04/28/16 12:00 96 Nasal Cannula 3.0 04/28/16 11:28 37.0 98 18 121/80 96 04/28/16 10:49 90 20 96 Nasal Cannula 3.0 General Appearance: WD/WN, no apparent distress Head: normocephalic, atraumatic Eyes: normal inspection, EOMI, sclerae normal ENT: normal ENT inspection, hearing grossly normal, pharynx normal Neck: supple, no adenopathy, thyroid normal, trachea midline Respiratory/Chest: chest non-tender, no respiratory distress, no accessory muscle use, + rales Cardiovascular: regular rate, rhythm, no gallop, no murmur Abdomen/GI: normal bowel sounds, non tender, soft, no organomegaly Back: normal inspection, no CVA tenderness Extremities/Musculoskelatal: no calf tenderness, normal capillary refill, non- tender Neurologic/Psych: alert, normal mood/affect, oriented x 3 Skin: normal color, warm/dry, no rash Lymphatic: no adenopathy Laboratory Results Date/Time Source Procedure Growth Status 04/28/16 17:10 Nasal MRSA DNA Surveillance Screen - Final Specimen Negative for MRSA by DNA Probe Complete 04/28/16 12:20 Sputum Expectorated Sputum Gram Stain - Final Resulted 04/28/16 12:20 Sputum Expectorated Sputum Sputum Culture Pending Resulted Last 24 Hours Test 04/28/16 21:00 04/29/16 06:27 White Blood Count 5.09 K/uL Red Blood Count 3.44 M/uL Hemoglobin 9.7 g/dL Hematocrit 29.3 % Mean Corpuscular Volume 85.2 fL Mean Corpuscular Hemoglobin 28.2 pg Mean Corpuscular Hemoglobin Concent 33.1 g/dl RDW Standard Deviation 39.9 fL RDW Coefficient of Variation 12.9 % Platelet Count 191 K/uL Mean Platelet Volume 10.5 fL Sodium Level 146 mmol/L Potassium Level 3.2 mmol/L Chloride Level 110 mmol/L Carbon Dioxide Level 27 mmol/L Anion Gap 9.0 mmol/L Blood Urea Nitrogen 3 mg/dl Creatinine 0.48 mg/dl Est Creatinine Clear Calc Drug Dose 179.2 ml/min Estimated GFR () > 150.0 Estimated GFR (Non- 132.6 BUN/Creatinine Ratio 6.0 Random Glucose 95 mg/dl Calcium Level 8.2 mg/dl Phosphorus Level 3.3 mg/dl Magnesium Level 1.8 mg/dl CHEST 2 VIEWS ROUTINE CLINICAL HISTORY: Pneumonia. COMPARISON STUDY: Chest radiograph April 28, 2016. FINDINGS: Extensive bilateral airspace opacities with interstitial thickening persist. There is no pneumothorax. Cardiac size is normal. Mediastinal contours are normal. No pleural effusion is identified. IMPRESSION: No significant change in extensive bilateral airspace opacities which suggest pneumonia. Electronically signed by: Chavez Flaherty M.D. 04/29/2016 8:32 AM Dictated Date/Time: 04/29/2016 8:28 AM The status of this report is Signed. Draft = Not yet reviewed or approved by Radiologist. Signed = Reviewed and approved by Radiologist. <AttendingPhy>Nicholas Su M.D.</AttendingPhy> <FamilyPhy>Kendell Aguirre M.D.</FamilyPhy> <PrimaryPhy>Kendell Aguirre M.D.</PrimaryPhy> <UnitNumber> [id number]</UnitNumber> <VisitNumber>[id number]</VisitNumber> <PatientName> KERRY MIRANDA</PatientName> <DateOfBirth>1985</DateOfBirth> <Location> [facility]</Location> <ServiceDate>04/26/16</ServiceDate> <MNE>ESINDI</MNE> < OrderingPhy>Nicholas Su M.D.</OrderingPhy> <OrderingPhyMNE>f rep ord dr weinstein</OrderingPhyMNE> <DictatingPhyMNE>f rep dict dr weinstein</DictatingPhyMNE> < CCListMNE>f rep ct js</CCListMNE> <AdmittingPhyMNE>f pt admit dr weinstein</ AdmittingPhyMNE> <AttendingPhyMNE>f pt attend dr weinstein</AttendingPhyMNE> <ConsultingPhyMNE>f pt consult dr weinstein</ConsultingPhyMNE> <FamilyPhyMNE>f pt fam dr weinstein</FamilyPhyMNE> <O Assessment & Plan Bilateral pneumonia in 31-year-old female with preceding influenza like illness. Bacterial infection including pneumococcus and Staph aureus most likely, mycoplasma, C. pneumoniae, and Legionella also possibilities, viral pneumonia less likely but also possible. Given antibiotic allergies, levofloxacin and vancomycin are appropriate for now, suspect patient does not have MRSA given negative MRSA screen. I have ordered mycoplasma serologies and Legionella urinary antigen. will discuss with all involved, will follow.
[2016-04-29] MEDS: IBUPROFEN 200 MG TAB PO PRN ×2 (13:06→19:55)
[2016-04-29] MEDS ORDERED: LEVOFLOXACIN / D5W 750 MG in PREMIXED IN D5W 150 ML IV SCH (14:00)
--- NOTE | 2016-04-29 14:53 | Progress Note ---
Internal Med Progress Note Date of Service: Apr 29, 2016. Provider Documentation: SUBJECTIVE: The patient was seen and examined Much better today less SOB and less Cough OBJECTIVE: Vital Signs-as noted below Exam: General-Minimal distress at rest Eyes-normal ENT-normal Neck-supple Lungs-decreased breath sound bilaterally ,coarse crackles left base and mid lung -much better Heart-Regular,no murmur Abdomen-Benign,no masses,bowel sound present Extremities-No edema Neuro-AAOc3 Lab data as noted below. ASSESSMENT & PLAN: ACUTE HYPOXIC RESPIRATORY FAILURE DUE TO CAP-Multilobar Pneumonia - patient presented with cough and fever x 6 days - two prior ER visits had negative influenza swab x 2, negative LP - Noted to be have tachycardic, Tachypnea,use of accessory muscles for breathing,Low Saturation on RA 88%mild leukopenia (WBC 4.5), afebrile, normal lactic acid - CXR showing consolidation in left lung - CTA -negative for PE but showed multilobar pneumonia ::1. No CT evidence of acute pulmonary embolism 2. Extensive bilateral pulmonary airspace opacities left greater than right. The findings are consistent with a multilobar pneumonia. Imaging subsequent to treatment is recommended to document clearing 3. Mediastinal and hilar lymphadenopathy, likely reactive. - Has been on Levaquin in the ED, will continue with; noted patient was however has not had any milk supply due to recent illness. -Advised not to do breast feeding while on Antibiotic - blood and sputum cultures pending -MRSA -negativeX2 -Urine -Gardnerella like organism -Clinically a lot better -Check CXR in AM-no improvement in Infiltration -Appreciate Pulmonary and ID input -Vancomycin added to Levaquin ANEMIA-Post state - hgb 13.3 2/3 - > 10.8 today - likely due to acute illness, no signs of bleeding - Post state -monitor HYPOTHYROIDISM - continue levothyroxine ANXIETY - continue escitalopram DVT PROPHYLAXIS - SCDs DISPO Discharge in 2-3 days Check CXR in AM-no change in infiltration Vital Signs: Date Time Temp Pulse Resp B/P Pulse Ox O2 Delivery O2 Flow Rate FiO2 04/29/16 12:00 Nasal Cannula 1.0 04/29/16 11:19 37.1 74 18 143/92 96 Nasal Cannula 1.0 04/29/16 11:06 75 20 96 Nasal Cannula 2.0 04/29/16 07:45 Nasal Cannula 2.0 04/29/16 07:16 36.7 95 18 133/83 93 Nasal Cannula 2.0 04/29/16 06:59 105 20 90 Nasal Cannula 2.0 04/29/16 04:14 37.1 89 18 119/81 93 Nasal Cannula 2.0 04/29/16 04:00 Nasal Cannula 2.0 04/29/16 00:00 Nasal Cannula 2.0 04/28/16 23:23 37.0 83 18 122/76 96 Nasal Cannula 2.0 Humidified Oxygen 04/28/16 23:20 84 20 94 Nasal Cannula 2.0 04/28/16 20:01 37.0 86 18 137/83 95 Nasal Cannula 2.0 04/28/16 20:00 Room Air 04/28/16 19:05 90 20 95 Nasal Cannula 2.0 04/28/16 16:07 94 Nasal Cannula 3.0 04/28/16 16:04 37.5 106 16 138/81 94 3.0 Lab Results: Results Past 24 Hours Test 04/28/16 21:00 04/29/16 06:27 04/29/16 10:45 Range/Units White Blood Count 5.09 4.8-10.8 K/uL Red Blood Count 3.44 4.2-5.4 M/uL Hemoglobin 9.7 12.0-16.0 g/dL Hematocrit 29.3 37-47 % Mean Corpuscular Volume 85.2 80-100 fL Mean Corpuscular Hemoglobin 28.2 25-34 pg Mean Corpuscular Hemoglobin Concent 33.1 32-36 g/dl RDW Standard Deviation 39.9 36.4-46.3 fL RDW Coefficient of Variation 12.9 11.5-14.5 % Platelet Count 191 130-400 K/uL Mean Platelet Volume 10.5 7.4-10.4 fL Sodium Level 146 136-145 mmol/L Potassium Level 3.2 3.5-5.1 mmol/L Chloride Level 110 98-107 mmol/L Carbon Dioxide Level 27 21-32 mmol/L Anion Gap 9.0 3-11 mmol/L Blood Urea Nitrogen 3 7-18 mg/dl Creatinine 0.48 0.60-1.20 mg/dl Est Creatinine Clear Calc Drug Dose 179.2 ml/min Estimated GFR () > 150.0 Estimated GFR (Non- 132.6 BUN/Creatinine Ratio 6.0 10-20 Random Glucose 95 70-99 mg/dl Calcium Level 8.2 8.5-10.1 mg/dl Phosphorus Level 3.3 2.5-4.9 mg/dl Magnesium Level 1.8 1.8-2.4 mg/dl Microbiology Results 04/28/16 MRSA DNA Surveillance Screen - Final, Complete Specimen Negative for MRSA by DNA Probe
[2016-04-29] MEDS ORDERED: VANCOMYCIN TROUGH SCH (15:30)
[2016-04-29] MEDS: VANCOMYCIN INJ 1,300 MG in SODIUM CHLORIDE 0.9% 250ML 250 ML IV SCH ×2 (16:11→23:41)
[2016-04-29] MEDS: SODIUM CHLORIDE 0.9% 1000ML 1,000 ML IV SCH (19:53)
[2016-04-29] MEDS: ESCITALOPRAM OXALATE 20 MG TAB PO SCH (19:55)
[2016-04-29] MEDS: LEVOTHYROXINE 75 MCG TAB PO SCH (19:55)
[2016-04-30] VITALS (8 sets, daily range): BP systolic 131–143; BP diastolic 87–97; PULSE 71–88; TEMP 37–37.2; O2SAT 95–98
[2016-04-30] MEDS: ALBUT/IPRATROP 3MG/0.5MG NEB 3 ML VIAL INH SCH ×2 (07:04→11:14)
--- NOTE | 2016-04-30 07:09 | PULMONARY PROGRESS NOTE ---
DATE: 04/30/2016 The patient is considerably improved. She states she feels 100% better than she did at the time of admission. She continues to have a cough which is nonproductive. She denies chest pain or aspiration. She states she slept very well last night. According to nurses' note, she had a good night last night. She has been out ambulating in the hallway twice last night without difficulty. Oxygen saturation is stable on 1 liter. She did have a headache last night at 8:00 p.m. and was given some ibuprofen and it resolved. PHYSICAL EXAMINATION: VITAL SIGNS: Stable and she is afebrile, blood pressure is 131/88 in the right arm 0415 this morning. Oxygen saturation is 98% on 1 liter. I\T\O is 2 liters in and 3250 out. Weight 85 kilograms. MEDICATIONS: Noted. HEENT: Unremarkable except for a small posterior pharynx. No thrush noted. There is no adenopathy. HEART: Regular rate and rhythm. LUNGS: Actually are clear today with very minimal crackles at the left base. ABDOMEN: Soft, obese, nontender. The incision site has healed nicely. EXTREMITIES: She has no cyanosis, clubbing or edema. Chest x-ray from yesterday showed no change in the extensive bilateral opacities, but it is early in the course of the disease. I would expect a chest x-ray not to change for several weeks. LABORATORY DATA: White count was 5.09, hematocrit 29%. PRP is stable with sodium 146, potassium 3.2. MRSA DNA surveillance screen is negative. IMPRESSION: 1. Bilateral pneumonia. This needs to be considered a community acquired pneumonia. There is no evidence of any staph. I think that vancomycin can be discontinued. 2. Hypothyroidism. 3. Hypokalemia. RECOMMENDATIONS: 1. At this point, I think the patient could be transitioned to oral Levaquin. I would treat her for a full 10 days 500 mg daily for a full 10 days. 2. Discontinue the vancomycin. 3. Follow up with Dr. Gaston. She did have a chest x-ray done in about 4 weeks. I will sign off on the patient now since pulmonary mendoza she looks good. I would be glad to see her as an outpatient if you desire.
[2016-04-30] MEDS ORDERED: VANCOMYCIN TROUGH SCH (07:30)
[2016-04-30] MEDS: VANCOMYCIN INJ 1,300 MG in SODIUM CHLORIDE 0.9% 250ML 250 ML IV SCH (07:58)
[2016-04-30 08:21] LABS: CREATININE 0.57 mg/dl (0.60-1.20)
[2016-04-30] MEDS: IBUPROFEN 200 MG TAB PO PRN (08:23)
[2016-04-30] MEDS ORDERED: LEVOFLOXACIN 500 MG TAB PO ONE (11:37)
--- NOTE | 2016-04-30 12:28 | Progress Note ---
Internal Med Progress Note Date of Service: Apr 30, 2016. Provider Documentation: SUBJECTIVE: The patient was seen and examined Much better today No more SOB but has Cough Ambulating without any difficulty OBJECTIVE: Vital Signs-as noted below Exam: General-Minimal distress at rest Eyes-normal ENT-normal Neck-supple Lungs-decreased breath sound bilaterally ,coarse crackles left base and mid lung -almost gone Heart-Regular,no murmur Abdomen-Benign,no masses,bowel sound present Extremities-No edema Neuro-AAOc3 Lab data as noted below. ASSESSMENT & PLAN: ACUTE HYPOXIC RESPIRATORY FAILURE DUE TO CAP-Multilobar Pneumonia - patient presented with cough and fever x 6 days - two prior ER visits had negative influenza swab x 2, negative LP - Noted to be have tachycardic, Tachypnea,use of accessory muscles for breathing,Low Saturation on RA 88%mild leukopenia (WBC 4.5), afebrile, normal lactic acid - CXR showing consolidation in left lung - CTA -negative for PE but showed multilobar pneumonia ::1. No CT evidence of acute pulmonary embolism 2. Extensive bilateral pulmonary airspace opacities left greater than right. The findings are consistent with a multilobar pneumonia. Imaging subsequent to treatment is recommended to document clearing 3. Mediastinal and hilar lymphadenopathy, likely reactive. - Has been on Levaquin in the ED, will continue with; noted patient was however has not had any milk supply due to recent illness. -Advised not to do breast feeding while on Antibiotic - blood and sputum cultures pending -MRSA -negativeX2 -Urine -Gardnerella like organism -Check CXR in AM-no improvement in Infiltration -Appreciate Pulmonary and ID input -Vancomycin added to Levaquin -D/C vanco and continue Levaquin for a total of 10 days ANEMIA-Post state - hgb 13.3 2/3 - > 10.8 today - likely due to acute illness, no signs of bleeding - Post state -monitor HYPOTHYROIDISM - continue levothyroxine ANXIETY - continue escitalopram DVT PROPHYLAXIS - SCDs DISPO Discharge in 2-3 days Check CXR in AM-no change in infiltration Discharge home today Vital Signs: Date Time Temp Pulse Resp B/P Pulse Ox O2 Delivery O2 Flow Rate FiO2 04/30/16 11:18 37.0 71 18 143/97 97 Room Air 04/30/16 11:14 77 16 98 Room Air 04/30/16 08:00 95 Room Air 04/30/16 07:39 37.0 88 16 132/87 95 Room Air 04/30/16 07:04 81 16 98 Nasal Cannula 1.0 04/30/16 04:15 37.2 82 16 131/88 98 04/30/16 04:05 Nasal Cannula 1.0 04/30/16 00:05 Nasal Cannula 1.0 04/29/16 23:08 37.2 83 18 130/81 94 Nasal Cannula 1.0 04/29/16 20:05 83 16 98 Nasal Cannula 1.0 04/29/16 20:00 Nasal Cannula 1.0 04/29/16 19:57 37.1 90 18 138/93 95 Room Air 04/29/16 16:00 Nasal Cannula 1.0 04/29/16 15:44 79 16 96 Nasal Cannula 1.0 04/29/16 15:25 37.2 84 18 137/89 92 Room Air 1.0 Lab Results: Results Past 24 Hours Test 04/30/16 07:38 Range/Units Creatinine 0.57 0.60-1.20 mg/dl Est Creatinine Clear Calc Drug Dose 150.4 ml/min Estimated GFR () 145.2 Estimated GFR (Non- 125.3 Vancomycin Level Trough 12.7 SEE COMMENT mcg/ml
[2016-04-30] MEDS ORDERED: BENZONATATE 100MG CAP PO ONE (13:00)
[2016-04-30] MEDS ORDERED: LVQ500 PO (13:16)
[2016-04-30] MEDS ORDERED: LCTX PO (13:16)
[2016-04-30] MEDS ORDERED: VNTHFA/IN INH (13:16)
[2016-04-30] MEDS ORDERED: BENZ100C7 PO (13:16)
--- NOTE | 2016-04-30 13:19 | Discharge Instructions ---
Discharge Instructions Admission Reason for Admission: Hypoxia Discharge Discharge Diagnosis / Problem: Multilobar Pneumonia Discharge Goals Goal(s): Prevent Disease Progression Activity Recommendations Activity Limitations: resume your previous activity . Instructions / Follow-Up Instructions / Follow-Up Dr Granados on 05/05/16 at 11:30AM at [facility] Diet Patient's current hospital diet: Regular Diet Discharge Diet Recommended Diet: Regular Diet Pending Studies Studies pending at discharge: no Medical Emergencies . Who to Call and When: Medical Emergencies: If at any time you feel your situation is an emergency, please call 911 immediately. . Non-Emergent Contact Non-Emergency issues call your: Primary Care Provider . Past History Medical & Surgical History: (1) Pneumonia (2) Hypothyroidism (3) Anxiety (4) Drug-induced cardiomyopathy . "Provider Documentation" section prepared by Nicholas Su. VTE Core Measure Inpt VTE Proph given/why not?: SCD's (Ambulant)
[2016-04-30] MEDS ORDERED: POTASSIUM CHLORIDE 10 MEQ TABCR PO STA (13:23)
--- NOTE | 2016-04-30 13:35 | Infectious Disease Progress Nt ---
Progress Note Date of Service Apr 30, 2016. Subjective Pt evaluation today including: conversation w/ patient, physical exam, chart review, lab review, review of studies, conversation w/ loan consultant, review of inpatient medication list Patient feeling better today. Less cough, less short of breath. No fever. Tolerating antibiotics without apparent difficulty. All cultures remain negative to date. All Other Systems: Reviewed and Negative Medications Current Inpatient Medications Medications (Trade) Dose Ordered Sig/Cori Route Start Time Stop Time Status Last Admin Dose Admin Sodium Chloride (Nss 1000ml) 1,000 ml @ 50 mls/hr Q20H IV 04/26/16 14:39 05/26/16 14:38 04/29/16 19:53 50 MLS/HR Acetaminophen (Tylenol Tab) 650 mg Q4H PRN PO 04/26/16 14:45 05/26/16 14:44 04/29/16 18:09 650 MG Ondansetron HCl (Zofran Inj) 4 mg Q6H PRN IV 04/26/16 14:45 05/26/16 14:44 Ibuprofen (Advil Tab) 400 mg QID PRN PO 04/26/16 14:45 05/26/16 14:44 04/30/16 08:23 400 MG Hydrocodone Bit/ Homatropine Methylb (Hycodan Syrup) 5 ml Q6H PRN PO 04/26/16 15:00 05/10/16 14:59 04/27/16 18:02 5 ML Albuterol/ Ipratropium (Duoneb) 3 ml QIDR INH 04/26/16 16:00 05/26/16 15:59 04/30/16 11:14 3 ML Levothyroxine Sodium (Synthroid Tab) 75 mcg HS PO 04/26/16 21:00 05/26/16 20:59 04/29/16 19:55 75 MCG Ioversol 100 ml 100 ml UD PRN IV 04/26/16 16:00 04/30/16 15:59 Promethazine HCl/ Sodium Chloride (Phenergan Inj/ Nss 50ml) 50.5 ml @ 204 mls/hr Q6H PRN IV 04/26/16 17:30 05/26/16 17:29 04/26/16 17:41 204 MLS/HR Escitalopram Oxalate (Lexapro Tab) 20 mg HS PO 04/26/16 22:00 05/26/16 21:59 04/29/16 19:55 20 MG Menthol (Nice Janie) 1 janie PRN PRN PO 04/27/16 01:45 05/27/16 01:44 Lorazepam (Ativan Tab) 0.5 mg Q8 PRN PO 04/28/16 06:30 05/28/16 06:29 04/29/16 22:45 0.5 MG Albuterol Sulfate (Ventolin 0.083% 2.5MG/3ML Neb) 2.5 mg Q6R PRN INH 04/28/16 14:30 05/28/16 14:29 Guaifenesin (Robitussin Sugar Free Syrup) 100 mg Q6H PRN PO 04/28/16 14:30 05/28/16 14:29 04/28/16 22:25 100 MG Vancomycin HCl (Consult) 1 ea UD PRN N/A 04/28/16 15:30 05/28/16 15:29 Levofloxacin (Levaquin Tab) 500 mg DAILY@11 PO 05/01/16 11:00 05/08/16 10:59 Lactobacillus Acidophilus (Floranex Tab) 2 tab BID PO 04/30/16 21:00 05/30/16 20:59 Benzonatate (Tessalon Perles Cap) 100 mg TID PO 04/30/16 14:00 05/30/16 13:59 Objective Vital Signs Date Time Temp Pulse Resp B/P Pulse Ox O2 Delivery O2 Flow Rate FiO2 04/30/16 12:00 95 Room Air 04/30/16 11:18 37.0 71 18 143/97 97 Room Air 04/30/16 11:14 77 16 98 Room Air 04/30/16 08:00 95 Room Air 04/30/16 07:39 37.0 88 16 132/87 95 Room Air 04/30/16 07:04 81 16 98 Nasal Cannula 1.0 04/30/16 04:15 37.2 82 16 131/88 98 04/30/16 04:05 Nasal Cannula 1.0 04/30/16 00:05 Nasal Cannula 1.0 04/29/16 23:08 37.2 83 18 130/81 94 Nasal Cannula 1.0 04/29/16 20:05 83 16 98 Nasal Cannula 1.0 04/29/16 20:00 Nasal Cannula 1.0 04/29/16 19:57 37.1 90 18 138/93 95 Room Air 04/29/16 16:00 Nasal Cannula 1.0 04/29/16 15:44 79 16 96 Nasal Cannula 1.0 04/29/16 15:25 37.2 84 18 137/89 92 Room Air 1.0 Physical Exam General Appearance: WD/WN, no apparent distress Eyes: normal inspection, EOMI, sclerae normal ENT: normal ENT inspection, pharynx normal Neck: supple, no adenopathy, trachea midline Respiratory/Chest: chest non-tender, no respiratory distress, no accessory muscle use, + rales Cardiovascular: regular rate, rhythm, no gallop, no murmur Abdomen: normal bowel sounds, non tender, soft, no organomegaly Extremities: non-tender, no calf tenderness Neurologic/Psychiatric: alert, oriented x 3 Skin: normal color, no rash Lymphatic: no adenopathy Laboratory Results Last 24 Hours Test 04/30/16 07:38 Creatinine 0.57 mg/dl Est Creatinine Clear Calc Drug Dose 150.4 ml/min Estimated GFR () 145.2 Estimated GFR (Non- 125.3 Vancomycin Level Trough 12.7 mcg/ml Assessment and Plan Bilateral pneumonia in 31-year-old female with preceding influenza like illness. Bacterial infection including pneumococcus and Staph aureus most likely, mycoplasma, C. pneumoniae, and Legionella also possibilities, viral pneumonia less likely but also possible. Given improvement, think patient can be discharged home on oral levofloxacin for [address] Su.
[2016-04-30] MEDS ORDERED: BENZONATATE 100MG CAP PO SCH (14:00)
--- NOTE | 2016-04-30 18:32 | Discharge Summary ---
Discharge Summary Admission Date: Apr 26, 2016 at 14:41 Discharge Date: Apr 30, 2016 Discharge Disposition: Home Principal Diagnosis: Multilobar Pneumonia Secondary Diagnoses/Problems: Please see H&P Consultations: Pulmonary and ID Medication Reconciliation New Medications: Benzonatate (Benzonatate) 100 Mg Cap 100 MG PO TID for 10 Days, #30 CAP Lactobacillus Acidophilus (Floranex) 1 Tab Tab 2 TAB PO BID for 10 Days, #40 TAB Levofloxacin (Levofloxacin) 500 Mg Tab 500 MG PO DAILY@11 for 6 Days, #6 TAB Changed Medications: Albuterol Hfa (Ventolin Hfa) 200 Puffs/45867 Mcg Aers 2 PUFFS INH Q6H PRN for SOB/Wheezing, #1 INHALER (Medication details modified) Continued Medications: Acetaminophen (Tylenol) 500 Mg Tab 1000 MG PO PRN for Fever, TAB Escitalopram Oxalate (Lexapro) 20 Mg Tab 20 MG PO HS, TAB Fenugreek (Trigonella Foenum-G (Fenugreek) 610 Mg Cap 4 CAP PO TID Ibuprofen Tab (Motrin) 600 Mg Tab 600 MG PO Q6H PRN for Pain, TAB Levothyroxine Sodium (Synthroid) 75 Mcg Tab 75 MCG PO HS, TAB Multivit/Min/Iron/Fol Ac/Pren ( Vitamin) Tab 1 TAB PO HS, TAB Promethazine Hcl (Phenergan) 25 Mg Tab 25-50 MG PO Q6H PRN for Nausea, #15 TAB Valacyclovir Hcl (Valtrex) 1 Gm Tab 1000 MG PO BID PRN for cold sores, #21 TAB Discontinued Medications: Hydrocodone/Acetaminophen 5MG/325MG ([place] 5MG/325MG) Tab 1-2 TABLET PO Q4 PRN for Pain, #12 TAB Admission Information HPI (per Admitting provider): 31 year old female who presents to the ER for evaluation of persistent fever and cough. Patient reports she started getting sick 6 days ago. She reports fever of as high as 104 at home. She reports taking Motrin and [place] around the clock however fevers return. She has had a dry, non productive cough. She reports a persistent headache. She reports increasing shortness of breath at rest and with exertion. She reports chest pain only with coughing. She has had nausea but denies abdominal pain or vomiting. She denies any urinary symptoms. She reports several of her family members have been sick with cold like symptoms however not as severe as hers. She has been seen in the ER two times prior to today. On 04/22 in the ER patient's PCR influenza swab was negative and chest XR did not show any acute process. Patient was offered LP however patient declined. She then returned to the ER on 04/23 and had the LP done which was negative. She also had a repeat PCR influenza swab that was negative. In the ER today, patient's CXR is showing consolidation throughout the left lung. She was hypoxic on room air at 88%, this improved with oxygen 2L via NC. Patient was given IVF, Zofran, Fentanyl, neb, and IV Levaquin. 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, hx of EF ~ 45%, LVEF normal on echo Status: Chronic (4) Hypothyroidism Status: Chronic Surgical Problems: (1) H/O exploratory laparotomy Permanent Comment: endometriosis Status: Chronic (2) History of knee surgery Status: Chronic Family History FH: alpha 1 antitrypsin deficiency MOTHER FH: colon cancer FATHER FH: uterine cancer MOTHER Social History Smoking Status: Never Smoker Alcohol Use: none Immunizations History of Influenza Vaccine: Yes Influenza Vaccine Date: Dec 26, 2014 History of Tetanus Vaccine?: Yes Tetanus Immunization Date: Dec 04, 2015 Multi-Drug Resistant Organisms History of MDRO: No Allergies Coded Allergies: Adhesives (Verified Allergy, Mild, RASH, 04/26/16) Azelastine (Verified Allergy, Mild, FACIAL SWELLING, 04/26/16) Codeine (Verified Allergy, Mild, HIVES, 04/26/16) Propoxyphene (Verified Allergy, Mild, HIVES, VOMITING, 04/26/16) HIVE, VOMITING Tramadol (Verified Allergy, Mild, HIVES, 04/26/16) ABLE TO TAKE PO Beeswax (Verified Allergy, Unknown, SWELLING, 04/26/16) Hydromorphone (Verified Allergy, Unknown, hives , 04/26/16) HAD REACTION TO IV NOT SURE ONE TABLET FORM, Ketorolac (Verified Allergy, Unknown, HIVES, 04/26/16) Onion (Verified Allergy, Unknown, THROAT SWELLING, 04/26/16) Oxycodone (Verified Allergy, Unknown, THROAT SWELLING, 04/26/16) Penicillins (Verified Allergy, Unknown, THROAT SWELLING, 04/26/16) Tromethamine (Verified Allergy, Unknown, HIVES, 04/26/16) Home Medications Scheduled Albuterol Hfa (Ventolin Hfa), 2 PUFFS INH Q6H Escitalopram Oxalate (Lexapro), 20 MG PO DAILY Fenugreek (Trigonella Foenum-G (Fenugreek), 4 CAP PO TID Levothyroxine Sodium (Synthroid), 75 MCG PO HS Multivit/Min/Iron/Fol Ac/Pren ( Vitamin), 1 TAB PO HS Scheduled PRN Acetaminophen (Tylenol), 1,000 MG PO for Fever Hydrocodone/Acetaminophen 5MG/325MG ([place] 5MG/325MG), 1-2 TABLET PO Q4 PRN for Pain Ibuprofen Tab (Motrin), 600 MG PO Q6H PRN for Pain Promethazine Hcl (Phenergan), 25-50 MG PO Q6H PRN for Nausea Valacyclovir Hcl (Valtrex), 1,000 MG PO BID PRN for cold sores Review of Systems 10 point review of systems was completed with the pertinent positives and negatives noted per the HPI Physical Exam Vital Signs Date Time Temp Pulse Resp B/P Pulse Ox O2 Delivery O2 Flow Rate FiO2 04/26/16 13:23 103 91 Nasal Cannula 2.0 04/26/16 12:49 102 04/26/16 12:14 97 18 126/58 88 Room Air 04/26/16 10:39 37.4 114 18 113/65 92 Room Air General Appearance: + mild distress (coughing throughout exam) Head: normocephalic Eyes: normal inspection ENT: hearing grossly normal Neck: supple, no JVD Respiratory/Chest: no respiratory distress, + decreased breath sounds (left lung simental) Cardiovascular: no edema, normal peripheral pulses, + tachycardia (regular rhythm) Abdomen/GI: normal bowel sounds, non tender, soft Extremities/Musculoskelatal: normal inspection, no calf tenderness Neurologic/Psych: no motor/sensory deficits, alert, normal mood/affect, oriented x 3 Skin: normal color, warm/dry Diagnostics Laboratory Results Results Past 24 Hours Test 04/26/16 12:05 04/26/16 12:11 04/26/16 13:52 04/26/16 14:41 Range/Units White Blood Count 4.56 4.8-10.8 K/uL Red Blood Count 3.76 4.2-5.4 M/uL Hemoglobin 10.8 12.0-16.0 g/dL Hematocrit 31.9 37-47 % Mean Corpuscular Volume 84.8 80-100 fL Mean Corpuscular Hemoglobin 28.7 25-34 pg Mean Corpuscular Hemoglobin Concent 33.9 32-36 g/dl Platelet Count 158 130-400 K/uL Mean Platelet Volume 11.2 7.4-10.4 fL Neutrophils (%) (Auto) 71.1 % Lymphocytes (%) (Auto) 21.3 % Monocytes (%) (Auto) 6.1 % Eosinophils (%) (Auto) 1.1 % Basophils (%) (Auto) 0.2 % Neutrophils # (Auto) 3.24 1.4-6.5 K/uL Lymphocytes # (Auto) 0.97 1.2-3.4 K/uL Monocytes # (Auto) 0.28 0.11-0.59 K/uL Eosinophils # (Auto) 0.05 0-0.5 K/uL Basophils # (Auto) 0.01 0-0.2 K/uL RDW Standard Deviation 38.8 36.4-46.3 fL RDW Coefficient of Variation 12.5 11.5-14.5 % Immature Granulocyte % (Auto) 0.2 % Immature Granulocyte # (Auto) 0.01 0.00-0.02 K/uL Sodium Level 144 136-145 mmol/L Potassium Level 3.4 3.5-5.1 mmol/L Chloride Level 108 98-107 mmol/L Carbon Dioxide Level 28 21-32 mmol/L Anion Gap 8.0 3-11 mmol/L Blood Urea Nitrogen 10 7-18 mg/dl Creatinine 0.67 0.60-1.20 mg/dl Est Creatinine Clear Calc Drug Dose 125.5 ml/min Estimated GFR () 137.7 Estimated GFR (Non- 118.8 BUN/Creatinine Ratio 14.2 10-20 Random Glucose 116 70-99 mg/dl Calcium Level 8.5 8.5-10.1 mg/dl Total Bilirubin 0.4 0.2-1 mg/dl Direct Bilirubin < 0.1 0-0.2 mg/dl Aspartate Amino Transf (AST/SGOT) 49 15-37 U/L Alanine Aminotransferase (ALT/SGPT) 43 12-78 U/L Alkaline Phosphatase 113 45-117 U/L Total Protein 6.4 6.4-8.2 gm/dl Albumin 2.6 3.4-5.0 gm/dl Lipase 55 73-393 U/L Human Chorionic Gonadotropin, Qual NEG NEG Monoscreen NEG NEG Urine Color DK YELLOW Urine Appearance CLOUDY CLEAR Urine pH 5.5 4.5-7.5 Urine Specific [place]ner 1.031 1.000-1.030 Urine Protein 1+ NEG Urine Glucose (UA) NEG NEG Urine Ketones TRACE NEG Urine Occult Blood NEG NEG Urine Nitrite NEG NEG Urine Bilirubin NEG NEG Urine Urobilinogen NEG NEG Urine Leukocyte Esterase TRACE NEG Urine WBC (Auto) 10-30 0-5 /hpf Urine RBC (Auto) 5-10 0-4 /hpf Urine Hyaline Casts (Auto) 1-5 0-5 /lpf Urine Epithelial Cells (Auto) >30 0-5 /lpf Urine Bacteria (Auto) 2+ NEG Urine Pathogenic Casts 0-3 WBC CASTS 0 /lpf Bedside Lactic Acid Venous 0.73 0.90-1.70 mmol/L Microbiology Results 04/26/16 Blood Culture, Received Pending 04/26/16 Blood Culture, Received Pending 04/26/16 Urine Culture, Received Pending Diagnostic Radiology CXR IMPRESSION: There is patchy airspace consolidation identified throughout the left lung, new from 04/22/2016 and typical in appearance for pneumonia. Radiographic follow-up to resolution is recommended. Impression Assessment and Plan ACUTE HYPOXIC RESPIRATORY FAILURE DUE TO CAP - admit to tele - patient presenting with cough and fever x 6 days - two prior ER visits had negative influenza swab x 2, negative LP - today patient is tachycardic, mild leukopenia (WBC 4.5), afebrile, normal lactic acid - CXR showing consolidation in left lung - tachycardia and hypoxia likely due to pneumonia, however will r/p PE with D. Dimer - s/p Levaquin in the ED, will continue with; noted patient was however has not had any milk supply due to recent illness. If patient resumes , will need to change antibiotic - blood and sputum cultures ANEMIA - hgb 13.3 3 - > 10.8 today - likely due to acute illness, no signs of bleeding - continue to monitor HYPOTHYROIDISM - continue levothyroxine ANXIETY - continue escitalopram DVT PROPHYLAXIS - SCDs DISPO - In my clinical judgment this beneficiary meets acute admission criteria, established by [facility], that includes being hospitalized through two midnights. VTE Prophylaxis VTE Risk Assessment Done? Y/N: Yes Risk Level: Low Note ATTENDING ADDENDUM Record reviewed. Patient interviewed and examined. Care coordinated with SCOTT Pang. Please refer to her documentation for patient's history. Briefly, 31 YO female who presented to ED with several day history of fever, cough, SOB. EXAM: General- appears to be acutely ill, but in no acute distress VS- as noted Neck- supple; no adenopathy Lungs- rhonchi left base, diffuse mild wheezing Heart- RRR, tachy Abdomen- + BS, soft, nontender Extremities- no pretibial edema or calf tenderness Neuro- alert DATA: WBC 4560. D-dimer 2120. Other lab studies as noted. CXR- patchy infiltrates left lung. CT chest- negative for pulmonary embolism; bilateral infiltrates consistent with multilobar pneumonia; mediastinal and hilar adenopathy Venous duplex lower extremities- neg for DVT. ASSESSMENT AND PLAN: Community acquired pneumonia, multilobar. Tachycardic, hypoxic. Pulmonary embolism ruled out. Blood cultures obtained in ED. FARM BOSS swab for influenza A/B negative per Ag assay 2/2 and PCR assay 2/. Check sputum culture if cough becomes productive. Received IV levofloxacin in ED which will be continued. Safety of levofloxacin with apparently unknown, so best to use formula during course of antibiotic therapy. Will need f/u imaging by CT to assure resolution of infiltrates and adenopathy. Please refer to JERI Lima's documentation for discussion of other issues. Glen Renteria MD Physical Exam (per Admitting): General Appearance: + mild distress (coughing throughout exam) Head: normocephalic Eyes: normal inspection ENT: hearing grossly normal Neck: supple, no JVD Respiratory/Chest: no respiratory distress, + decreased breath sounds (left lung simental) Cardiovascular: no edema, normal peripheral pulses, + tachycardia (regular rhythm) Abdomen/GI: normal bowel sounds, non tender, soft Extremities/Musculoskelatal: normal inspection, no calf tenderness Neurologic/Psych: no motor/sensory deficits, alert, normal mood/affect, oriented x 3 Skin: normal color, warm/dry Hospital Course ACUTE HYPOXIC RESPIRATORY FAILURE DUE TO CAP-Multilobar Pneumonia - patient presented with cough and fever x 6 days - two prior ER visits had negative influenza swab x 2, negative LP - Noted to be have tachycardic, Tachypnea,use of accessory muscles for breathing,Low Saturation on RA 88%mild leukopenia (WBC 4.5), afebrile, normal lactic acid - CXR showing consolidation in left lung - CTA -negative for PE but showed multilobar pneumonia ::1. No CT evidence of acute pulmonary embolism 2. Extensive bilateral pulmonary airspace opacities left greater than right. The findings are consistent with a multilobar pneumonia. Imaging subsequent to treatment is recommended to document clearing 3. Mediastinal and hilar lymphadenopathy, likely reactive. - Has been on Levaquin in the ED, will continue with; noted patient was however has not had any milk supply due to recent illness. -Advised not to do breast feeding while on Antibiotic - blood and sputum cultures pending -MRSA -negativeX2 -Urine -Gardnerella like organism -Check CXR in AM-no improvement in Infiltration -Appreciate Pulmonary and ID input -Vancomycin added to Levaquin -D/C vanco and continue Levaquin for a total of 10 days ANEMIA-Post state - hgb 13.3 2/3 - > 10.8 today - likely due to acute illness, no signs of bleeding - Post state -monitor HYPOTHYROIDISM - continue levothyroxine ANXIETY - continue escitalopram DVT PROPHYLAXIS - SCDs DISPO Discharge in 2-3 days Check CXR in AM-no change in infiltration Discharge home today Total time spent on discharge = 35 minutes This includes examination of the patient, discharge planning, medication reconciliation, and communication with other providers. Discharge Instructions Admission Reason for Admission: Hypoxia Discharge Discharge Diagnosis / Problem: Multilobar Pneumonia Discharge Goals Goal(s): Prevent Disease Progression Activity Recommendations Activity Limitations: resume your previous activity . Instructions / Follow-Up Instructions / Follow-Up Dr Granados on 05/05/16 at 11:30AM at [facility] Diet Patient's current hospital diet: Regular Diet Discharge Diet Recommended Diet: Regular Diet Pending Studies Studies pending at discharge: no Medical Emergencies . Who to Call and When: Medical Emergencies: If at any time you feel your situation is an emergency, please call 911 immediately. . Non-Emergent Contact Non-Emergency issues call your: Primary Care Provider . Past History Medical & Surgical History: (1) Pneumonia (2) Hypothyroidism (3) Anxiety (4) Drug-induced cardiomyopathy . "Provider Documentation" section prepared by Nicholas Su. VTE Core Measure Inpt VTE Proph given/why not?: SCD's (Ambulant) <Electronically signed by Nicholas Su M.D.> Additional Copies To Kendell Aguirre M.D.
[2016-04-30] MEDS ORDERED: LACTOBACILLUS ACIDOPHILUS (FLORANEX) TAB PO SCH (21:00)
[2016-05-01] MEDS ORDERED: LEVOFLOXACIN 500 MG TAB PO SCH (11:00)
[2016-05-03 11:35] LABS: LEGIONELLA ANTIGEN NOT DETECTED
== END 2016-04-30 14:30 | disposition home or self-care (01) | DRG 193 ==
LOC: ENRESERVDT → ENRESERVTM → C.EDB 10:38 → C.MED 14:41
PROVIDERS: ADMIT Hospitalist; ATTEND Internal Medicine
DX: J18.9 Pneumonia, unspecified organism (principal); J96.01 Acute respiratory failure with hypoxia; I42.9 Cardiomyopathy, unspecified; F41.9 Anxiety disorder, unspecified; E88.01 Alpha-1-antitrypsin deficiency; E03.9 Hypothyroidism, unspecified; Z80.49 Family history of malignant neoplasm of other genital organs; Z80.8 Family history of malignant neoplasm of other organs or systems; Z83.2 Family history of diseases of the blood and blood-forming organs and certain disorders involving the immune mechanism; Z91.048 Other nonmedicinal substance allergy status; Z88.8 Allergy status to other drugs, medicaments and biological substances; Z88.0 Allergy status to penicillin; Z88.5 Allergy status to narcotic agent; Z91.018 Allergy to other foods; Z88.6 Allergy status to analgesic agent; Z79.899 Other long term (current) drug therapy; D72.819 Decreased white blood cell count, unspecified; D64.9 Anemia, unspecified; E28.2 Polycystic ovarian syndrome; E87.6 Hypokalemia

== ENCOUNTER 2017-05-24 10:11 | Emergency (ER) | payer BC ==
[~2017-05-24] VITALS: Ht 160 cm; Wt 84.0 kg
[~2017-05-24 10:11] MED LIST changes: +ACET-1256 PO; +BENZ100C7 PO; +ESCI1TAB10 PO; +FENU1CAP2 PO; -HYDR-5688 PO; +IBUP-1427 PO; +LCTX PO; +LEVO75TA PO; +LVQ500 PO; +PRENTAB26 PO; -PROM25TA9 PO; +VALA1TAB2 PO
[2017-05-24 10:13] VITALS: TEMP 36.8; Ht 160 cm; Wt 84.0 kg
[2017-05-24] MEDS ORDERED: ONDANSETRON INJ 2 MG/ML 2 ML VIAL IV STA (10:51)
[2017-05-24] MEDS ORDERED: SODIUM CHLORIDE 0.9% 1000ML 1,000 ML IV STA (10:51)
[2017-05-24] MEDS ORDERED: LAMO25TA PO (11:01)
[2017-05-24] MEDS ORDERED: PRENTAB26 PO (11:01)
[2017-05-24] MEDS ORDERED: LEVO75TA PO (11:01)
[2017-05-24] MEDS ORDERED: ESCI1TAB10 PO (11:01)
[2017-05-24] MEDS: FENTANYL CITRATE INJ 50 MCG/1 ML 2 ML VIAL IV PRN ×3 (11:03→12:48)
--- NOTE | 2017-05-24 11:32 | DIAGNOSTIC IMAGING REPORT ---
CT SCAN OF THE ABDOMEN AND PELVIS WITHOUT IV CONTRAST CLINICAL HISTORY: Right flank pain. Hematuria. Nausea and vomiting. COMPARISON STUDY: Abdominal ultrasound dated 06/19/2013. TECHNIQUE: CT scan of the abdomen and pelvis is performed from the lung bases to the proximal femora. Images are reviewed in the axial, sagittal, and coronal planes. IV contrast was not administered for this examination as per the referring clinician. A dose lowering technique was utilized adhering to the principles of ALARA. CT DOSE: 1119.22 mGy.cm FINDINGS: Lung bases: The heart is normal in size and without pericardial effusion. The lung bases are clear. Liver: The unenhanced liver is normal in size, contour, and attenuation. There is no intrahepatic biliary ductal dilatation. Gallbladder: Unremarkable. Spleen: Normal in size and attenuation. Pancreas: Unremarkable. Adrenal glands: Unremarkable. Kidneys: The unenhanced kidneys are normal in size. There is a 5 mm obstructing calculus located just above the right vesicoureteral junction seen on image #[id number]. This causes mild to moderate right hydroureteronephrosis. The right kidney is mildly edematous. There is an additional punctate nonobstructing calculus in the right upper pole. A single punctate nonobstructing calculus is also seen in the left kidney. There is no left-sided hydronephrosis. There is no evidence of contour deforming renal mass lesion. Abdominal vasculature: The abdominal aorta is normal in course and caliber. Bowel: The small bowel and colon are normal in course and caliber. The appendix is well-visualized and normal. Peritoneum: There is no intraperitoneal free air or abdominal ascites. There is a small fat-containing umbilical hernia. Lymphadenopathy: None. Pelvic viscera: The bladder is decompressed and grossly unremarkable. The uterus and adnexa are normal as visualized noting bilateral ovarian follicles. Skeletal structures: No lytic or blastic lesions are seen. Mild sclerotic change is noted in the sacroiliac joints. IMPRESSION: 1. There is a 5 mm obstructing calculus in the distal right ureter just above the vesicoureteral junction. This causes mild to moderate right hydroureteronephrosis. 2. An additional punctate nonobstructing calculus is seen in both kidneys. 3. Additional findings as above. Electronically signed by: Micheal Treviño M.D. 05/24/2017 11:31 AM Dictated Date/Time: 05/24/2017 11:25 AM
[2017-05-24 11:39] LABS: BASO % 0.3 %; BASO ABS # 0.02 K/uL (0-0.2); EOS % 2.4 %; EOS ABS # 0.16 K/uL (0-0.5); HEMOGLOBIN 14.4 g/dL (12.0-16.0); IG# 0.02 K/uL (0.00-0.02); LYMPH % 20.9 %; MEAN CELL VOLUME 85.6 fL (80-100); MEAN CORPUSCULAR HEMOGLOBIN 30.1 pg (25-34); MEAN CORPUSCULAR HGB CONC 35.1 g/dl (32-36); MEAN PLATELET VOLUME 10.7 fL (7.4-10.4); MONO % 6.9 %; MONO ABS # 0.46 K/uL (0.11-0.59); NEUT % 69.2 %; NEUT ABS # 4.65 K/uL (1.4-6.5); PLATELET COUNT 226 K/uL (130-400); RED CELL DISTRIBUTION WIDTH CV 12.8 % (11.5-14.5); RED CELL DISTRIBUTION WIDTH SD 40.2 fL (36.4-46.3); WHITE BLOOD COUNT 6.71 K/uL (4.8-10.8)
[2017-05-24 11:48] LABS: ALBUMIN 3.8 gm/dl (3.4-5.0); CALCIUM 8.9 mg/dl (8.5-10.1); CREATININE 0.79 mg/dl (0.60-1.20); POTASSIUM 3.9 mmol/L (3.5-5.1)
[2017-05-24 11:50] LABS: TOTAL PROTEIN 7.5 gm/dl (6.4-8.2)
[2017-05-24] MEDS ORDERED: ACETAMINOPHEN 1000 MG/100 ML IV IV ONE (12:13)
[2017-05-24] MEDS ORDERED: ACETAMINOPHEN IV 100 ML IV ONE (12:30)
[2017-05-24] MEDS ORDERED: TAMSULOSIN HCL 0.4 MG CAP PO ONE (12:30)
[2017-05-24] MEDS ORDERED: HYDR-5688 PO (12:54)
[2017-05-24] MEDS ORDERED: TAMS0.4C38 PO (12:54)
[2017-05-24] MEDS ORDERED: ONDA4TAB10 SL (12:54)
--- NOTE | 2017-05-24 14:30 | DIAGNOSTIC IMAGING REPORT ---
([facility]) [facility] CLINICAL HISTORY: evaluate for ureter calculus in the bladder bladder calcification TECHNIQUE: Ultrasound COMPARISON STUDY: CT abdomen and pelvis same date FINDINGS: Bladder is midline. No significant bladder calcifications. Ureteral jets are present. IMPRESSION: No ultrasonic evidence for bladder calcification. The above report was generated using voice recognition software. It may contain grammatical, syntax or spelling errors. Electronically signed by: Kendall Moore M.D. 05/24/2017 2:29 PM Dictated Date/Time: 05/24/2017 2:27 PM
[2017-05-24 14:57] VITALS: BP 121/76; PULSE 76; O2SAT 99
--- NOTE | 2017-05-24 16:14 | EMERGENCY ROOM VISIT NOTE ---
ED Visit Note First contact with patient: 10:23 Chief Complaint: Right flank pain. History of Present Illness: Ms. Dave is a 32 year-old white female who ambulates into the ED accompanied by her complaining of right flank pain. Patient reports an acute onset of right flank pain that woke her from sleep at 8 AM this morning, approximately 2 hours ago,. Since that time her pain has been constant. She describes her pain as a sharp sensation in the area just below the right costovertebral angle. She rates her discomfort 10/10. Her pain is radiating down into the right lower back. She has not identified any aggravating or alleviating factors related to the pain. She has not taken medication for pain prior to arrival at the hospital. Associated with her pain she reports she has been nauseated and had a few episodes of vomiting. Patient denies fevers, chills, sweats, skin eruptions, skin color changes, upper respiratory tract symptoms, shortness of breath, chest pain, constipation , rectal bleeding, black/tarry stools, urinary symptoms, hematuria, vaginal bleeding, vaginal discharge, genital paresthesias, bowel and bladder dysfunction , lower extremity weakness/numbness/tingling, recent direct or repetitive trauma. Review of Systems: As noted above in history of present illness. All body systems were reviewed and found to be negative as noted above. Past Medical History: Bronchitis, asthma, hypothyroidism. Current Medications: Synthroid, Lexapro, Lamictal and vitamins. Allergies to Medications: Codeine, hydromorphone, Toradol, tramadol, oxycodone, penicillin, azelastine, propoxyphene, tromethamine. Social History: Patient is not employed; she lives with her and feels safe in her home environment; she admits to tobacco and alcohol use. Physical Examination: Vital Signs: Date Time Temp Pulse Resp B/P (MAP) Pulse Ox O2 Delivery O2 Flow Rate FiO2 05/24/17 14:57 76 14 121/76 99 05/24/17 13:46 75 12 123/78 100 Room Air 05/24/17 13:13 75 05/24/17 12:06 134/84 05/24/17 12:00 74 17 05/24/17 11:36 122/75 05/24/17 11:12 74 05/24/17 11:06 74 18 121/74 97 Room Air 05/24/17 10:13 36.8 100 18 126/84 97 Room Air GENERAL: 32-year-old female in moderate distress due to pain, nontoxic-appearing , afebrile and hemodynamically stable. NEUROLOGICAL: Awake, alert and oriented to person, place and time. Answering questions appropriately and following commands. Normal gait. Good hand eye coordination. SKIN: Warm, dry and pink. No soft tissue eruptions or trauma noted. HEENT: Atraumatic and normocephalic. PERRLA. Sclera white and conjunctiva pink. Oral cavity moist and pink. Pharynx is nonerythematous or edematous. Speech normal. No lymphadenopathy. Trachea midline. No jugular venous distention. BACK: No tenderness over the bony spine. No CVA tenderness. THORAX: Lungs sounds are clear to auscultation and equal bilaterally with symmetrical chest wall. No wheezing, rales or rhonchi. No crepitus, tenderness , subcutaneous air or deformities noted. ABDOMEN: Flat, soft and nontender. Positive bowel sounds in all quadrants. No guarding, rigidity or organomegaly. EXTREMITIES: Moves all extremities well on command and with purpose. All distal neurovascular statuses are intact and equal bilaterally. ED Course: Patient is assessed as noted above. Laboratory Testing: Test 05/24/17 10:22 05/24/17 10:25 Range/Units White Blood Count 6.71 4.8-10.8 K/uL Red Blood Count 4.79 4.2-5.4 M/uL Hemoglobin 14.4 12.0-16.0 g/dL Hematocrit 41.0 37-47 % Mean Corpuscular Volume 85.6 80-100 fL Mean Corpuscular Hemoglobin 30.1 25-34 pg Mean Corpuscular Hemoglobin Concent 35.1 32-36 g/dl Platelet Count 226 130-400 K/uL Mean Platelet Volume 10.7 7.4-10.4 fL Neutrophils (%) (Auto) 69.2 % Lymphocytes (%) (Auto) 20.9 % Monocytes (%) (Auto) 6.9 % Eosinophils (%) (Auto) 2.4 % Basophils (%) (Auto) 0.3 % Neutrophils # (Auto) 4.65 1.4-6.5 K/uL Lymphocytes # (Auto) 1.40 1.2-3.4 K/uL Monocytes # (Auto) 0.46 0.11-0.59 K/uL Eosinophils # (Auto) 0.16 0-0.5 K/uL Basophils # (Auto) 0.02 0-0.2 K/uL RDW Standard Deviation 40.2 36.4-46.3 fL RDW Coefficient of Variation 12.8 11.5-14.5 % Immature Granulocyte % (Auto) 0.3 % Immature Granulocyte # (Auto) 0.02 0.00-0.02 K/uL Sodium Level 139 136-145 mmol/L Potassium Level 3.9 3.5-5.1 mmol/L Chloride Level 106 98-107 mmol/L Carbon Dioxide Level 26 21-32 mmol/L Anion Gap 7.0 3-11 mmol/L Blood Urea Nitrogen 10 7-18 mg/dl Creatinine 0.79 0.60-1.20 mg/dl Est Creatinine Clear Calc Drug Dose 106.9 ml/min Estimated GFR () 116.4 Estimated GFR (Non- 100.5 BUN/Creatinine Ratio 12.5 10-20 Random Glucose 97 70-99 mg/dl Calcium Level 8.9 8.5-10.1 mg/dl Total Bilirubin 0.6 0.2-1 mg/dl Direct Bilirubin 0.1 0-0.2 mg/dl Aspartate Amino Transf (AST/SGOT) 13 15-37 U/L Alanine Aminotransferase (ALT/SGPT) 22 12-78 U/L Alkaline Phosphatase 80 45-117 U/L Total Protein 7.5 6.4-8.2 gm/dl Albumin 3.8 3.4-5.0 gm/dl Lipase 67 73-393 U/L Urine Color YELLOW Urine Appearance CLEAR CLEAR Urine pH 7.0 4.5-7.5 Urine Specific [place] 1.013 1.000-1.030 Urine Protein NEG NEG Urine Glucose (UA) NEG NEG Urine Ketones NEG NEG Urine Occult Blood NEG NEG Urine Nitrite NEG NEG Urine Bilirubin NEG NEG Urine Urobilinogen NEG NEG Urine Leukocyte Esterase NEG NEG Noncontrast Abdominal/Pelvic CT: Was reviewed by myself and read by the radiologist showing a 5 mm obstructing calculus in the distal right ureter just above the vesicoureteral junction which is causing mild to moderate right hydroureteronephrosis, additional punctate nonobstructing calculus in both kidneys, normal-appearing and well visualized appendix, uterus and adnexa are normal.. Patient was hydrated with normal saline and she received a total of 300 mcg of fentanyl IV and 1 g of acetaminophen IV for pain, 4 mg of Zofran IV for nausea and 0.4 mg of Tessalon Perles. Patient was reassessed multiple times during her stay in the emergency department. After the cause of her pain was found she still was appreciating on moderate amount of pain. I did talk to the hospitalist from [facility] to admit the patient. Within 5 minutes after talking to the hospitalist I was called to the room and the patient reports that she was no longer having flank pain but was experiencing some pressure sensation in the area of the bladder. Bladder Ultrasound: Was reviewed by myself and the radiologist and no kidney stone or other disease process was noted. Patient was reassessed and remained subjectively much better. Patient was educated about today's findings and instructed on her treatment plan ; she verbalized understanding and agreement with this plan. Clinical Impression: Right ureter calculus. Decision-Making: Linda my differential diagnosis I considered ureter calculus, pyelonephritis, muscle spasm, herniated disc, appendicitis, ectopic , ovarian torsion and other causes. Disposition: Patient discharged home in stable condition accompanied by her ; prior to departure she was reassessed and subjectively reported she was feeling much better and rated her discomfort 1/10. Plan: Patient was placed on a sliding pain scale of ibuprofen, acetaminophen and [place] ; her name was checked on state database and no red flags were noted and she was given appropriate narcotic precautions. Additionally she was given a prescription for Zofran and instructed on its use to avoid narcotic nausea/vomiting. Patient was prescribed Flomax 0.4 mg once a day until passage of the stone. Patient was encouraged to stay hydrated with increased clear fluids. Patient was encouraged to strain all urine and collect all stones for analysis. Patient was referred to Dr. Ursula Hayes, urologist for specialty care and treatment. Patient was encouraged return the ED for worsening/uncontrolled pain, uncontrolled nausea/vomiting, urinary tract infection symptoms or any new/ concerning symptoms.
== END 2017-05-24 14:53 | disposition home or self-care (01) ==
LOC: C.EDB 10:12
DX: N13.2 Hydronephrosis with renal and ureteral calculous obstruction (principal); J45.909 Unspecified asthma, uncomplicated; E03.9 Hypothyroidism, unspecified; F17.200 Nicotine dependence, unspecified, uncomplicated; Z88.6 Allergy status to analgesic agent; Z88.5 Allergy status to narcotic agent; Z88.0 Allergy status to penicillin; Z88.8 Allergy status to other drugs, medicaments and biological substances

== ENCOUNTER 2017-08-03 12:05 | Emergency (ER) | payer BC ==
[~2017-08-03] VITALS: Ht 160 cm; Wt 84.0 kg
[~2017-08-03 12:05] MED LIST changes: -ACET-1256 PO; -BENZ100C7 PO; -FENU1CAP2 PO; +HYDR-5688 PO; -IBUP-1427 PO; +LAMO25TA PO; -LCTX PO; -LVQ500 PO; +ONDA4TAB10 SL; -VALA1TAB2 PO; -VNTHFA/IN INH
[2017-08-03 12:08] VITALS: TEMP 36.7; Ht 160 cm; Wt 84.0 kg
[2017-08-03] MEDS ORDERED: FENTANYL CITRATE INJ 50 MCG/1 ML 2 ML VIAL IV STA (12:16)
[2017-08-03] MEDS ORDERED: SODIUM CHLORIDE 0.9% 1000ML 1,000 ML IV STA (12:16)
[2017-08-03] MEDS ORDERED: ONDANSETRON INJ 2 MG/ML 2 ML VIAL IV STA (12:16)
[2017-08-03 12:39] LABS: BASO % 0.3 %; BASO ABS # 0.02 K/uL (0-0.2); EOS ABS # 0.18 K/uL (0-0.5); HEMATOCRIT 40.4 % (37-47); HEMOGLOBIN 13.7 g/dL (12.0-16.0); IG# 0.01 K/uL (0.00-0.02); LYMPH % 30.3 %; MEAN CELL VOLUME 85.6 fL (80-100); MEAN CORPUSCULAR HGB CONC 33.9 g/dl (32-36); MEAN PLATELET VOLUME 10.6 fL (7.4-10.4); MONO % 6.4 %; MONO ABS # 0.38 K/uL (0.11-0.59); NEUT % 59.8 %; NEUT ABS # 3.56 K/uL (1.4-6.5); PLATELET COUNT 213 K/uL (130-400); RED CELL DISTRIBUTION WIDTH CV 12.7 % (11.5-14.5); RED CELL DISTRIBUTION WIDTH SD 39.7 fL (36.4-46.3); WHITE BLOOD COUNT 5.95 K/uL (4.8-10.8)
[2017-08-03 13:05] LABS: ALBUMIN 3.8 gm/dl (3.4-5.0); CALCIUM 8.4 mg/dl (8.5-10.1); CREATININE 0.85 mg/dl (0.60-1.20); POTASSIUM 4.2 mmol/L (3.5-5.1); TOTAL PROTEIN 7.1 gm/dl (6.4-8.2)
--- NOTE | 2017-08-03 13:06 | DIAGNOSTIC IMAGING REPORT ---
ABD/PELVIS WITHOUT FOR STONE HISTORY: 32 years-old Female EVALUATE FLANK PAIN/HEMATURIA acute right-sided flank pain with hematuria COMPARISON: CT 05/24/2017 TECHNIQUE: Multiple axial CT images of the abdomen and pelvis were obtained without use of IV contrast. A dose lowering technique was used consistent with the principals of MARI. FINDINGS: Minimal dependent subsegmental bibasilar atelectasis. No pneumatosis or pneumoperitoneum identified. Imaged inferior cardiac chambers are unremarkable. Evaluation of the solid abdominal organs is limited without use of IV contrast. The liver, gallbladder, spleen, pancreas and adrenal glands are within normal limits. Punctate nonobstructing calculus of the superior pole left kidney with additional punctate nonobstructing calculus of the superior pole right kidney. There is mild right-sided hydroureteronephrosis and mild perinephric and periureteral inflammatory stranding secondary to an obstructing 5 x 4 x 4 mm calculus of the right ureterovesicular junction, image 403 series 3. The bladder and adnexa are unremarkable. No aortic aneurysm or bulky adenopathy. No bowel obstruction or focal bowel wall thickening. Nondistention of the distal colon. Normal appendix. No ascites or mesenteric inflammatory changes. The soft tissues are unremarkable. The bones appear intact. IMPRESSION: 1. Mild right-sided hydroureteronephrosis secondary to an obstructing 5 x 4 x 4 mm calculus of the right ureterovesicular junction. Additionally, there are punctate nonobstructing calculi of the bilateral kidneys. 2. No bowel obstruction or focal bowel wall thickening. Normal appendix. The above report was generated using voice recognition software. It may contain grammatical, syntax or spelling errors. Electronically signed by: Kris Villanueva M.D. 08/03/2017 1:05 PM Dictated Date/Time: 08/03/2017 1:00 PM
[2017-08-03] MEDS ORDERED: FENTANYL CITRATE INJ 50 MCG/1 ML 2 ML VIAL IV ONE (13:15)
[2017-08-03] MEDS ORDERED: LMC/150 PO (13:28)
[2017-08-03] MEDS ORDERED: MNC50 PO (13:29)
[2017-08-03] MEDS ORDERED: HYDR-5688 PO ×2 (13:55→13:56)
[2017-08-03] MEDS ORDERED: TAMS0.4C38 PO (13:55)
[2017-08-03 14:01] VITALS: BP 104/64; PULSE 72; O2SAT 100
--- NOTE | 2017-08-03 18:31 | EMERGENCY ROOM VISIT NOTE ---
ED Visit Note First contact with patient: 12:11 Chief Complaint: Right flank pain. History of Present Illness: Ms. Dave is a 32 year-old white female who ambulates into the ED accompanied by her complaining of right flank pain. Historically patient reports nephrolithiasis and ureter calculus. Additionally patient reports she had a 5 mm right-sided ureter calculus in April when I saw her as a patient. She reports she had relief of her pain approximately 3-4 days after she was in the emergency department but reports she never passed a calculus. Additionally she reports she is currently scheduled to follow-up with urology from that visit in April next week. Patient reports a acute onset of right flank pain that started approximately 3 hours ago. Since that time the pain has been constant but slightly waxing and waning in intensity. The pain is currently described as sharp and cramping. The pain is radiating around the abdomen and into the right lower quadrant. She has not identified any aggravating factors related to the pain. She has not identified any alleviating factors related to the pain. She reports she attempted to take her previously prescribed Cummings for the pain but reports shortly after taking the medication she became nauseated and vomited. Associated with her pain she reports she has been having some chills and nausea/ vomiting. Patient denies fevers, sweats, skin eruptions, skin color changes, upper respiratory tract symptoms, shortness of breath, chest pain, diarrhea, constipation, rectal bleeding, black/tarry stools, urinary symptoms, hematuria, vaginal bleeding, vaginal discharge. Review of Systems: As noted above in history of present illness. All body systems were reviewed and found to be negative as noted above. Past Medical History: As previously noted and bronchitis, pneumonia. Current Medications: Medications Dose Route/Sig Max Daily Dose Days Date Category Dose Instructions Minocycline HCl 50 Mg Cap 50 Mg PO DAILY 08/03/17 Reported Lamictal (Lamotrigine) 150 Mg Tab 150 Mg PO DAILY 08/03/17 Reported Vitamin (Prenat Multivit/Benefits Specialist/Iron/Folic Ac) Tab 1 Tab PO DAILY 05/24/17 Reported Lexapro (Escitalopram Oxalate) 20 Mg Tab 20 Mg PO DAILY 05/24/17 Reported Synthroid (Levothyroxine Sodium) 75 Mcg Tab 75 Mcg PO DAILY 05/24/17 Reported Allergies to Medications: Azelastine, codine, hydromorphone, ketorolac, oxycodone, penicillins, propoxyphine, tromethamine, ketorolac, tramadol. Social History: Patient is not employed; she feels safe in her home environment ; she denies tobacco and alcohol use. Physical Examination: Vital Signs: Date Time Temp Pulse Resp B/P (MAP) Pulse Ox O2 Delivery O2 Flow Rate FiO2 08/03/17 14:01 72 18 104/64 100 Room Air 08/03/17 13:18 72 08/03/17 13:08 70 18 118/66 98 Room Air 08/03/17 12:08 36.7 92 18 128/81 99 Room Air GENERAL: 32-year-old female in moderate distress due to pain, nontoxic-appearing , afebrile and hemodynamically stable. NEUROLOGICAL: Awake, alert and oriented to person, place and time. Answering questions appropriately and following commands. Normal gait. Good hand eye coordination. SKIN: Warm, dry and pink. No soft tissue eruptions or trauma noted. HEENT: Atraumatic and normocephalic. PERRL. Sclera white and conjunctiva pink. Oral cavity moist and pink. Pharynx is nonerythematous or edematous. Speech normal. No lymphadenopathy. Trachea midline. No jugular venous distention. BACK: No tenderness over the bony spine. No CVA tenderness. THORAX: Lungs sounds are clear to auscultation and equal bilaterally with symmetrical chest wall. No wheezing, rales or rhonchi. No crepitus, tenderness , subcutaneous air or deformities noted. HEART: Regular rate and rhythm. No gallops, rubs or murmurs are appreciated. ABDOMEN: Flat, soft and nontender. Positive bowel sounds in all quadrants. No guarding, rigidity or organomegaly. EXTREMITIES: Moves all extremities well on command and with purpose. All distal neurovascular statuses are intact and equal bilaterally. ED Course: Patient is assessed as noted above. Laboratory Testing: Test 08/03/17 12:25 08/03/17 12:30 Range/Units White Blood Count 5.95 4.8-10.8 K/uL Red Blood Count 4.72 4.2-5.4 M/uL Hemoglobin 13.7 12.0-16.0 g/dL Hematocrit 40.4 37-47 % Mean Corpuscular Volume 85.6 80-100 fL Mean Corpuscular Hemoglobin 29.0 25-34 pg Mean Corpuscular Hemoglobin Concent 33.9 32-36 g/dl Platelet Count 213 130-400 K/uL Mean Platelet Volume 10.6 7.4-10.4 fL Neutrophils (%) (Auto) 59.8 % Lymphocytes (%) (Auto) 30.3 % Monocytes (%) (Auto) 6.4 % Eosinophils (%) (Auto) 3.0 % Basophils (%) (Auto) 0.3 % Neutrophils # (Auto) 3.56 1.4-6.5 K/uL Lymphocytes # (Auto) 1.80 1.2-3.4 K/uL Monocytes # (Auto) 0.38 0.11-0.59 K/uL Eosinophils # (Auto) 0.18 0-0.5 K/uL Basophils # (Auto) 0.02 0-0.2 K/uL RDW Standard Deviation 39.7 36.4-46.3 fL RDW Coefficient of Variation 12.7 11.5-14.5 % Immature Granulocyte % (Auto) 0.2 % Immature Granulocyte # (Auto) 0.01 0.00-0.02 K/uL Sodium Level 138 136-145 mmol/L Potassium Level 4.2 3.5-5.1 mmol/L Chloride Level 108 98-107 mmol/L Carbon Dioxide Level 24 21-32 mmol/L Anion Gap 6.0 3-11 mmol/L Blood Urea Nitrogen 13 7-18 mg/dl Creatinine 0.85 0.60-1.20 mg/dl Est Creatinine Clear Calc Drug Dose 99.3 ml/min Estimated GFR () 106.6 Estimated GFR (Non- 91.9 BUN/Creatinine Ratio 15.0 10-20 Random Glucose 97 70-99 mg/dl Calcium Level 8.4 8.5-10.1 mg/dl Total Bilirubin 0.7 0.2-1 mg/dl Direct Bilirubin 0-0.2 mg/dl Aspartate Amino Transf (AST/SGOT) 20 15-37 U/L Alanine Aminotransferase (ALT/SGPT) 22 12-78 U/L Alkaline Phosphatase 95 45-117 U/L Total Protein 7.1 6.4-8.2 gm/dl Albumin 3.8 3.4-5.0 gm/dl Lipase 69 73-393 U/L Chemistry Specimen Hemolysis Urine Color YELLOW Urine Appearance CLEAR CLEAR Urine pH 6.5 4.5-7.5 Urine Specific [place] 1.019 1.000-1.030 Urine Protein NEG NEG Urine Glucose (UA) NEG NEG Urine Ketones NEG NEG Urine Occult Blood 2+ NEG Urine Nitrite NEG NEG Urine Bilirubin NEG NEG Urine Urobilinogen NEG NEG Urine Leukocyte Esterase NEG NEG Urine WBC (Auto) 1-5 0-5 /hpf Urine RBC (Auto) 10-30 0-4 /hpf Urine Hyaline Casts (Auto) 1-5 0-5 /lpf Urine Epithelial Cells (Auto) 20-30 0-5 /lpf Urine Bacteria (Auto) NEG NEG Urine Test NEG NEG Noncontrast Abdominal/Pelvic CT: Was reviewed by myself and read by my radiologist showing a 5 mm obstructing calculus in the distal right ureter just above the VCJ, causing mild to moderate right hydroureteronephrosis. Additional punctate nonobstructing calculus is were seen in both kidneys.. Patient was hydrated with normal saline and she received a total of 100 mcg of fentanyl IV for pain and 4 mg of Zofran IV for nausea. Patient was reassessed multiple times during her stay in the emergency department. Patient's case was reviewed with Dr. Houston; we agreed on diagnostic approach, treatment, disposition and plan. Patient was educated about today's findings and instructed on her treatment plan ; she verbalized understanding and agreement with this plan. Clinical Impression: Right ureter calculus. Decision-Making: Initially my differential diagnosis I considered ureter calculus, pancreatitis, hepatitis, pyelonephritis, retroperitoneal hematoma and other causes. Disposition: Patient discharged home in stable condition accompanied by her ; prior to departure he was reassessed and subjectively reported he was pain-free. Plan: Patient was placed on a sliding pain scale of ibuprofen, acetaminophen and [place] ; her name was checked on state database and no red flags were noted and she was given appropriate narcotic precautions. Patient was prescribed Flomax and instructed on its use. Patient was encouraged to stay well hydrated and strain all urine and collect all stones for analysis. Patient was encouraged to keep her upcoming urology appointment next week for definitive care and treatment. Patient was encouraged return the ED for worsening/uncontrolled pain, uncontrolled fevers, urinary burning, uncontrolled vomiting or any new/ inserting symptoms. Patient was encouraged return the ED for worsening symptoms, fevers, or any new/ concerning symptoms.
== END 2017-08-03 14:55 | disposition home or self-care (01) ==
LOC: C.EDB 12:07 → C.EDC 14:55
DX: N13.2 Hydronephrosis with renal and ureteral calculous obstruction (principal)